=== PATIENT | male | born 1950 | race African-American/Black ===

== ENCOUNTER 2022-12-20 14:58 | Outpatient (AMB) | payer MEDICARE, SELFPAY ==
[2022-12-20 15:16] VITALS: BP 170/110; PULSE 62; BMI 36.5
--- NOTE | 2022-12-20 15:16 | HO.NEPHOV ---
HPI HPI Comments History of Present Illness Details I had the pleasure of seeing Gian in follow-up of his chronic kidney disease and hypertension. His blood pressure lately had been uncontrolled. He has obstructive sleep apnea and claims to be compliant with the CPAP. He has been having abdominal distension. He is wondering whether he has ascites. His urine output is good. He denies shortness of breath, proximal nocturnal dyspnea or orthopnea. He does not have any orthostatics symptoms, headache or weakness. He is not taking any nonsteroidal anti-inflammatory medications. He is not very strict with this salt intake. His serum creatinine has been around 2.3. [facility] Medical History (Updated 12/20/22 @ 16:08 by Manuel Bowers MD) Proteinuria Diabetes Chronic kidney disease, stage 3b Surgical History (Updated 12/20/22 @ 15:19 by Neida Stahl MA) H/O brain surgery Family History (Updated 12/20/22 @ 15:20 by Neida Stahl MA) Mother Hypertension Father Hypertension Stroke Sister Hypertension Social History (Updated 12/20/22 @ 15:19 by Neida Stahl MA) Alcohol intake: never Patient Tobacco Use Status: Never used Tobacco Vital Signs 12/20/22 15:16 Height 5 ft 10 in Weight 254 lb 2 oz BMI 36.5 BP 170/110 H Blood Pressure Location Lt brachial Position Sitting Pulse 62 Pulse Source Pulse Oximeter Physical Exam Vital Signs: Last Vital Signs Pulse 62 12/20/22 15:16 BP 170/110 H 12/20/22 15:16 BMI result Body Mass Index 36.5 Const General: no acute distress Orientation/consciousness: patient oriented x3 HEENT Head: Yes normocephalic Mouth: Normal oral and palatal mucosa present Eyes EOM: EOMs intact bilaterally Neck Neck: Yes supple Resp Auscultation: clear to auscultation bilaterally Cardio Jugular venous distension: no JVD Rate: regular rate Heart sounds: Murmur heart sound present GI Other: Distended Auscultation: normal bowel sounds General: Yes no CVA tenderness Back/Spine/Pelvis Back: no CVA tenderness Skin General skin exam: no rashes or lesions noted Neuro General: patient oriented x3 and moves all extremities Extrem General: Yes no pedal edema Assessment & Plan Assessment & Plan (1) Hypertension: Code(s): I10 - Essential (primary) hypertension Qualifiers: Hypertension type: primary hypertension Qualified Code(s): I10 - Essential (primary) hypertension (2) Chronic kidney disease, stage 3b: Code(s): N18.32 - Chronic kidney disease, stage 3b Vivian Springer has a stage III B CKD. He has diabetes for some time. He has mild proteinuria. His hypertension remains uncontrolled. I have ordered isosorbide 30 mg once a day . He has distended abdomen. Ascites needs to be ruled out. I will order ultrasound of the abdomen. He should be on a low-sodium diet. He likely needs to be re-initiated on spironolactone. If he has significant ascites , it needs to be tapped and needs to have a GI consult. Will continue rest of his current medications for now. Follow-up blood work ordered. All his questions and his sister's questions were answered. No other prescriptions were refilled today. Follow-up appointment given. Time spent the retrieving data, patient encounter and documentation 33 minutes. Orders: Orders Electrolytes Today I10 - Essential (primary) hypertension, N18.32 - Chronic kidney disease, stage 3b Blood Urea Nitrogen Today I10 - Essential (primary) hypertension, N18.32 - Chronic kidney disease, stage 3b Creatinine Today I10 - Essential (primary) hypertension, N18.32 - Chronic kidney disease, stage 3b Medications: New cholecalciferol (vitamin D3) 50 mcg PO DAILY 30 days 30 caps 8RF isosorbide mononitrate ER 30 mg PO DAILY 30 days 30 tabs 3RF Coding Level of Care Code Est Pt Level 4 (77350) Diagnoses Primary hypertension I10 Hypertension type: primary hypertension Chronic kidney disease, stage 3b N18.32
== END 2022-12-20 15:51 | disposition home or self-care (01) ==
PROVIDERS: PCP Internal Medicine; Visit Provider Internal Medicine Nephrology
DX: I12.9 Hypertensive chronic kidney disease with stage 1 through stage 4 chronic kidney disease, or unspecified chronic kidney disease (principal); N18.32 Chronic kidney disease, stage 3b
CPT/HCPCS: 99214

== ENCOUNTER → 2022-12-20 14:58 | Outpatient (BNVA) | payer OTHER, SELFPAY | PROVIDERS: PCP Internal Medicine; Visit Provider Internal Medicine Nephrology | DX: I12.9 Hypertensive chronic kidney disease with stage 1 through stage 4 chronic kidney disease, or unspecified chronic kidney disease (principal); N18.32 Chronic kidney disease, stage 3b | CPT/HCPCS: 99212 ==

== ENCOUNTER 2023-01-23 14:29 | Outpatient (AMB) | payer MEDICARE, SELFPAY ==
--- NOTE | 2023-01-23 14:42 | HO.NEPHOV_ITS ---
HPI HPI Comments History of Present Illness Details I had the pleasure of seeing Gian in follow-up of his chronic kidney disease and hypertension. His blood pressure is better controlled now. He has obstructive sleep apnea and claims to be compliant with the CPAP. He has been having abdominal distension and underwent an abdominal ultrasound which did not show any ascites. His urine output is good. He denies shortness of breath, proximal nocturnal dyspnea or orthopnea. He does not have any orthostatics symptoms, headache or weakness. He is not taking any nonsteroidal anti- inflammatory medications. He is not very strict with this salt intake. His ser um creatinine has been around 2.36. He continues to smoke. [facility] Medical History (Updated 12/20/22 @ 16:14 by Manuel Bowers MD) Proteinuria Diabetes Chronic kidney disease, stage 3b Surgical History H/O brain surgery Family History Mother Hypertension Father Hypertension Stroke Sister Hypertension Social History Alcohol intake: never Patient Tobacco Use Status: Never used Tobacco Vital Signs 01/23/23 14:43 01/23/23 15:22 Height 5 ft 10 in Weight 252 lb 8 oz BMI 36.2 BP 170/110 H 130/80 Blood Pressure Location Lt brachial Position Sitting Pulse 68 Pulse Source Pulse Oximeter Physical Exam Vital Signs: Last Vital Signs Pulse 68 01/23/23 14:43 BP 130/80 01/23/23 15:22 BMI result Body Mass Index 36.2 Assessment & Plan Assessment & Plan (1) Chronic kidney disease, stage 3b: Code(s): N18.32 - Chronic kidney disease, stage 3b (2) Hypertension: Code(s): I10 - Essential (primary) hypertension Qualifiers: Hypertension type: primary hypertension Qualified Code(s): I10 - Essential (primary) hypertension Plan Gian has a stage III B CKD. He has diabetes for some time. He has mild proteinuria. His hypertension is better controlled. His recent abdominal ultrasound did not show any ascites. He should be on a low-sodium diet. He may needed to be re-initiated on spironolactone, if his blood pressure control is suboptimal. We will continue rest of his current medications for now. Follow- up blood work ordered. All his questions and his sister's questions were answered. No other prescriptions were refilled today. Follow-up appointment given. Orders: Orders Blood Urea Nitrogen 01/23/23 I10 - Essential (primary) hypertension, N18.32 - Chronic kidney disease, stage 3b Creatinine 01/23/23 I10 - Essential (primary) hypertension, N18.32 - Chronic kidney disease, stage 3b Electrolytes 01/23/23 I10 - Essential (primary) hypertension, N18.32 - Chronic kidney disease, stage 3b Coding Level of Care Code Est Pt Level 3 (20745) Diagnoses Chronic kidney disease, stage 3b N18.32 Primary hypertension I10 Hypertension type: primary hypertension Results Reviewed Nephrology Results: No Data to Display
[2023-01-23 14:43] VITALS: BP 170/110; PULSE 68; BMI 36.2
[2023-01-23 15:22] VITALS: BP 130/80
== END 2023-01-23 15:25 | disposition home or self-care (01) ==
PROVIDERS: PCP Internal Medicine; Visit Provider Internal Medicine Nephrology
DX: N18.32 Chronic kidney disease, stage 3b (principal); I10 Essential (primary) hypertension
CPT/HCPCS: 99213

== ENCOUNTER → 2023-01-23 14:29 | Outpatient (BNVA) | payer MEDICARE, SELFPAY | PROVIDERS: PCP Internal Medicine; Visit Provider Internal Medicine Nephrology | DX: I12.9 Hypertensive chronic kidney disease with stage 1 through stage 4 chronic kidney disease, or unspecified chronic kidney disease (principal); N18.32 Chronic kidney disease, stage 3b | CPT/HCPCS: 99212 ==

== ENCOUNTER 2023-04-06 15:47 | Outpatient (AMB) | payer MEDICARE, SELFPAY ==
[2023-04-06 15:52] VITALS: BP 180/100; PULSE 65; O2SAT 93; BMI 36.2
--- NOTE | 2023-04-06 15:52 | HO.NEPHOV_ITS ---
HPI HPI Comments History of Present Illness Details I had the pleasure of seeing Gian in follow-up of his chronic kidney disease and hypertension. His blood pressure is better controlled now. He has obstructive sleep apnea and claims to be compliant with the CPAP. He has been having abdominal distension and underwent an abdominal ultrasound which did not show any ascites. His urine output is good. He denies shortness of breath, proximal nocturnal dyspnea or orthopnea. He does not have any orthostatics symptoms, headache or weakness. He is not taking any nonsteroidal anti- inflammatory medications. He is not very strict with this salt intake. His ser um creatinine has been around 2.36. He continues to smoke [facility] Medical History (Updated 12/20/22 @ 16:14 by Manuel Bowers MD) Proteinuria Diabetes Chronic kidney disease, stage 3b Surgical History H/O brain surgery Family History Mother Hypertension Father Hypertension Stroke Sister Hypertension Social History Alcohol intake: never Patient Tobacco Use Status: Never used Tobacco Vital Signs 04/06/23 15:52 Height 5 ft 10 in Weight 252 lb BMI 36.2 BP 180/100 H Blood Pressure Location Lt brachial Position Sitting Pulse 65 Pulse Source Pulse Oximeter Pulse Oximetry (%) 93 Oxygen Delivery Method Room Air Physical Exam Vital Signs: Last Vital Signs Pulse 65 04/06/23 15:52 BP 180/100 H 04/06/23 15:52 Pulse Ox 93 04/06/23 15:52 Oxygen Delivery Method Room Air 04/06/23 15:52 BMI result Body Mass Index 36.2 Const General: comfortable and no acute distress Orientation/consciousness: patient oriented x3 HEENT Head: Yes normocephalic Mouth: Normal oral and palatal mucosa present Eyes EOM: EOMs intact bilaterally Neck Neck: Yes supple Resp Auscultation: clear to auscultation bilaterally Cardio Jugular venous distension: no JVD Rate: regular rate GI Palpation (GI): Soft to palpation Auscultation: normal bowel sounds General: Yes no CVA tenderness Back/Spine/Pelvis Back: no CVA tenderness Skin General skin exam: no rashes or lesions noted Neuro General: patient oriented x3 and moves all extremities Extrem General: Yes no pedal edema Assessment & Plan Assessment & Plan (1) Chronic kidney disease, stage 3b: Code(s): N18.32 - Chronic kidney disease, stage 3b (2) Hypertension: Code(s): I10 - Essential (primary) hypertension Qualifiers: Hypertension type: primary hypertension Qualified Code(s): I10 - Essential (primary) hypertension Plan Gian has a stage III B CKD. He has diabetes for some time. He has mild proteinuria. His hypertension is not controlled. His recent abdominal ultrasound did not show any ascites. He should be on a low-sodium diet. I discontinued his metoprolol and started him on carvedilol 12.5 mg twice daily. I also increased his isosorbide to 60 mg daily. He may needed to be re- initiated on spironolactone, if his blood pressure control is suboptimal. We will continue rest of his current medications for now. All his questions and his sister's questions were answered. No other prescriptions were refilled t melita. Follow-up appointment given Medications: New carvedilol DISCONTINUED 25 mg PO BID 30 days 60 tabs 3RF Changed From isosorbide mononitrate ER 30 mg PO DAILY 30 days 30 tabs 3RF To isosorbide mononitrate ER 60 mg (2 x 30 mg) PO DAILY 30 days 60 tabs 3RF Coding Level of Care Code Est Pt Level 4 (65712) Diagnoses Chronic kidney disease, stage 3b N18.32 Primary hypertension I10 Hypertension type: primary hypertension Results Reviewed Nephrology Results: No Data to Display
== END 2023-04-06 16:16 | disposition home or self-care (01) ==
PROVIDERS: PCP Internal Medicine; Visit Provider Internal Medicine Nephrology
DX: N18.32 Chronic kidney disease, stage 3b (principal); I10 Essential (primary) hypertension
CPT/HCPCS: 99214

== ENCOUNTER → 2023-04-06 15:47 | Outpatient (BNVA) | payer MEDICARE, SELFPAY | PROVIDERS: PCP Internal Medicine; Visit Provider Internal Medicine Nephrology | DX: I12.9 Hypertensive chronic kidney disease with stage 1 through stage 4 chronic kidney disease, or unspecified chronic kidney disease (principal); N18.32 Chronic kidney disease, stage 3b | CPT/HCPCS: 99212 ==

== ENCOUNTER → 2023-04-12 15:32 | Outpatient (BNVA) | payer MEDICARE, SELFPAY | PROVIDERS: PCP Internal Medicine; Visit Provider Internal Medicine Nephrology | DX: I12.9 Hypertensive chronic kidney disease with stage 1 through stage 4 chronic kidney disease, or unspecified chronic kidney disease (principal); N18.32 Chronic kidney disease, stage 3b | CPT/HCPCS: 99212 ==

== ENCOUNTER 2023-04-12 15:33 | Outpatient (AMB) | payer MEDICARE, SELFPAY ==
[2023-04-12 16:00] VITALS: BP 140/100; PULSE 69; O2SAT 93; BMI 35.9
--- NOTE | 2023-04-12 16:00 | HO.NEPHOV_ITS ---
HPI HPI Comments History of Present Illness Details I had the pleasure of seeing Gian in follow-up of his chronic kidney disease and hypertension. His blood pressure is better controlled now. He has obstructive sleep apnea and claims to be compliant with the CPAP. He has been having abdominal distension and underwent an abdominal ultrasound which did not show any ascites. His urine output is good. He denies shortness of breath, proximal nocturnal dyspnea or orthopnea. He does not have any orthostatics symptoms, headache or weakness. He is not taking any nonsteroidal anti- inflammatory medications. He is not very strict with this salt intake. His ser um creatinine has been around 2.36. He continues to smoke [facility] Medical History (Updated 12/20/22 @ 16:14 by Manuel Bowers MD) Proteinuria Diabetes Chronic kidney disease, stage 3b Surgical History H/O brain surgery Family History Mother Hypertension Father Hypertension Stroke Sister Hypertension Social History Alcohol intake: never Patient Tobacco Use Status: Never used Tobacco Vital Signs 04/12/23 16:00 Height 5 ft 10 in Weight 250 lb 6 oz BMI 35.9 BP 140/100 H Blood Pressure Location Lt brachial Position Sitting Pulse 69 Pulse Source Pulse Oximeter Pulse Oximetry (%) 93 Oxygen Delivery Method Room Air Physical Exam Vital Signs: Last Vital Signs Pulse 69 04/12/23 16:00 BP 180/110 H 04/12/23 16:00 Pulse Ox 93 04/12/23 16:00 Oxygen Delivery Method Room Air 04/12/23 16:00 BMI result Body Mass Index 35.9 Const General: comfortable and no acute distress Orientation/consciousness: patient oriented x3 HEENT Head: Yes normocephalic Mouth: Normal oral and palatal mucosa present Eyes EOM: EOMs intact bilaterally Neck Neck: Yes supple Resp Auscultation: clear to auscultation bilaterally Cardio Jugular venous distension: no JVD Rate: regular rate GI Palpation (GI): Soft to palpation Auscultation: normal bowel sounds General: Yes no CVA tenderness Back/Spine/Pelvis Back: no CVA tenderness Skin General skin exam: no rashes or lesions noted Neuro General: patient oriented x3 and moves all extremities Assessment & Plan Assessment & Plan (1) Chronic kidney disease, stage 3b: Code(s): N18.32 - Chronic kidney disease, stage 3b (2) Hypertension: Code(s): I10 - Essential (primary) hypertension Qualifiers: Hypertension type: primary hypertension Qualified Code(s): I10 - Essential (primary) hypertension Plan Gian has a stage III B CKD. He has diabetes for some time. He has mild proteinuria. His hypertension is not controlled. His recent abdominal ultrasound did not show any ascites. He should be on a low-sodium diet. I discontinued his metoprolol at the last visit and started him on carvedilol 12.5 mg twice daily at the last visit which I increased to 25 mg bid today. C/W isosorbide to 60 mg daily. He may needed to be re-initiated on spironolactone, if his blood pressure control is suboptimal. We will continue rest of his current medications for now. All his questions and his sister's questions were answered. No other prescriptions were refilled today. Follow-up appointment given Coding Level of Care Code Est Pt Level 3 (93950) Diagnoses Chronic kidney disease, stage 3b N18.32 Primary hypertension I10 Hypertension type: primary hypertension Results Reviewed Nephrology Results: No Data to Display
== END 2023-04-12 16:25 | disposition home or self-care (01) ==
PROVIDERS: PCP Internal Medicine; Visit Provider Internal Medicine Nephrology
DX: N18.32 Chronic kidney disease, stage 3b (principal); I10 Essential (primary) hypertension
CPT/HCPCS: 99213

== ENCOUNTER 2023-04-24 14:32 | Outpatient (AMB) | payer MEDICARE, SELFPAY ==
[2023-04-24 14:40] VITALS: BP 140/90; PULSE 67; O2SAT 95; BMI 35.7
--- NOTE | 2023-04-24 14:40 | HO.NEPHOV_ITS ---
HPI HPI Comments History of Present Illness Details I had the pleasure of seeing Gian in follow-up of his chronic kidney disease and hypertension. His blood pressure is better controlled now. He has obstructive sleep apnea and claims to be compliant with the CPAP. He has been having abdominal distension and underwent an abdominal ultrasound which did not show any ascites. His urine output is good. He denies shortness of breath, proximal nocturnal dyspnea or orthopnea. He does not have any orthostatics symptoms, headache or weakness. He is not taking any nonsteroidal anti- inflammatory medications. He is not very strict with this salt intake. His ser um creatinine has been around 2.36. He continues to smoke [facility] Medical History (Updated 12/20/22 @ 16:14 by Manuel Bowers MD) Proteinuria Diabetes Chronic kidney disease, stage 3b Surgical History H/O brain surgery Family History Mother Hypertension Father Hypertension Stroke Sister Hypertension Social History Alcohol intake: never Patient Tobacco Use Status: Never used Tobacco Vital Signs 04/24/23 14:40 Height 5 ft 10 in Weight 248 lb 8 oz BMI 35.7 BP 140/90 H Blood Pressure Location Lt brachial Position Sitting Pulse 67 Pulse Source Pulse Oximeter Pulse Oximetry (%) 95 Oxygen Delivery Method Room Air Physical Exam Vital Signs: Last Vital Signs Pulse 67 04/24/23 14:40 BP 210/100 H 04/24/23 14:40 Pulse Ox 95 04/24/23 14:40 Oxygen Delivery Method Room Air 04/24/23 14:40 BMI result Body Mass Index 35.7 Const General: comfortable and no acute distress Orientation/consciousness: patient oriented x3 HEENT Head: Yes normocephalic Mouth: Normal oral and palatal mucosa present Eyes EOM: EOMs intact bilaterally Neck Neck: Yes supple Resp Auscultation: clear to auscultation bilaterally Cardio Jugular venous distension: no JVD Rate: regular rate GI Palpation (GI): Soft to palpation Auscultation: normal bowel sounds General: Yes no CVA tenderness Back/Spine/Pelvis Back: no CVA tenderness Skin General skin exam: no rashes or lesions noted Neuro General: patient oriented x3 and moves all extremities Extrem General: Yes no pedal edema Assessment & Plan Assessment & Plan (1) Chronic kidney disease, stage 3b: Code(s): N18.32 - Chronic kidney disease, stage 3b (2) Hypertension: Code(s): I10 - Essential (primary) hypertension Qualifiers: Hypertension type: primary hypertension Qualified Code(s): I10 - Essential (primary) hypertension Plan Gian has a stage III B CKD. He has diabetes for some time. He has mild proteinuria. His hypertension is not controlled. His recent abdominal ultrasound did not show any ascites. He should be on a low-sodium diet. C/W isosorbide 60 mg daily and current dose of carvedilol. He may needed to be re- initiated on spironolactone, if his blood pressure control is suboptimal. We will continue rest of his current medications for now. All his questions were answered. No other prescriptions were refilled today. Follow-up appointment given Orders: Orders Blood Urea Nitrogen Today I10 - Essential (primary) hypertension, N18.32 - Chronic kidney disease, stage 3b Creatinine Today I10 - Essential (primary) hypertension, N18.32 - Chronic kidney disease, stage 3b Electrolytes Today I10 - Essential (primary) hypertension, N18.32 - Chronic kidney disease, stage 3b Coding Level of Care Code Est Pt Level 3 (44792) Diagnoses Chronic kidney disease, stage 3b N18.32 Primary hypertension I10 Hypertension type: primary hypertension Results Reviewed Nephrology Results: No Data to Display
== END 2023-04-24 14:51 | disposition home or self-care (01) ==
PROVIDERS: PCP Internal Medicine; Visit Provider Internal Medicine Nephrology
DX: N18.32 Chronic kidney disease, stage 3b (principal); I10 Essential (primary) hypertension
CPT/HCPCS: 99213

== ENCOUNTER → 2023-04-24 14:32 | Outpatient (BNVA) | payer MEDICARE, SELFPAY | PROVIDERS: PCP Internal Medicine; Visit Provider Internal Medicine Nephrology | DX: I12.9 Hypertensive chronic kidney disease with stage 1 through stage 4 chronic kidney disease, or unspecified chronic kidney disease (principal); N18.32 Chronic kidney disease, stage 3b | CPT/HCPCS: 99212 ==

== ENCOUNTER → 2023-05-01 15:44 | Outpatient (BNVA) | payer MEDICARE, SELFPAY | PROVIDERS: PCP Internal Medicine; Visit Provider Internal Medicine Nephrology | DX: I12.9 Hypertensive chronic kidney disease with stage 1 through stage 4 chronic kidney disease, or unspecified chronic kidney disease (principal); N18.32 Chronic kidney disease, stage 3b | CPT/HCPCS: 99212 ==

== ENCOUNTER 2023-05-01 15:45 | Outpatient (AMB) | payer MEDICARE, SELFPAY ==
[2023-05-01 15:46] VITALS: BP 160/90
--- NOTE | 2023-05-01 15:46 | MHC.OFFVIS ---
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 His blood pressure is better controlled but not optimal . He has obstructive sleep apnea and claims to be compliant with the CPAP. He has been having abdominal distension and underwent an abdominal ultrasound which did not show any ascites. His urine output is good. He denies shortness of breath, proximal nocturnal dyspnea or orthopnea. He does not have any orthostatics symptoms, headache or weakness. He is not taking any nonsteroidal anti-inflammatory medications. He is not very strict with this salt intake. His serum creatinine has been around 2.36. He continues to smoke [facility] Medical History (Updated 12/20/22 @ 16:14 by Manuel Bowers MD) Proteinuria Diabetes Chronic kidney disease, stage 3b Surgical History H/O brain surgery Family History Mother Hypertension Father Hypertension Stroke Sister Hypertension Social History Alcohol intake: never Patient Tobacco Use Status: Never used Tobacco Physical Exam Vital Signs: Last Vital Signs BP 170/118 H 05/01/23 15:46 Const General: comfortable and no acute distress Orientation/consciousness: patient oriented x3 HEENT Head: Yes normocephalic Mouth: Normal oral and palatal mucosa present Eyes EOM: EOMs intact bilaterally Neck Neck: Yes supple Resp Auscultation: clear to auscultation bilaterally Cardio Jugular venous distension: no JVD Rate: regular rate GI Palpation (GI): Soft to palpation Auscultation: normal bowel sounds General: Yes no CVA tenderness Back/Spine/Pelvis Back: no CVA tenderness Skin General skin exam: no rashes or lesions noted Neuro General: patient oriented x3 and moves all extremities Extrem General: Yes no pedal edema Assessment & Plan Assessment & Plan (1) Chronic kidney disease, stage 3b: Code(s): N18.32 - Chronic kidney disease, stage 3b (2) Hypertension: Code(s): I10 - Essential (primary) hypertension Qualifiers: Hypertension type: primary hypertension Qualified Code(s): I10 - Essential (primary) hypertension Plan Gian has a stage III B CKD. He has diabetes for some time. He has mild proteinuria. His hypertension is not controlled. His recent abdominal ultrasound did not show any ascites. He should be on a low-sodium diet. C/W isosorbide 60 mg daily and current dose of carvedilol. I started him on AMlodipine 5 mg daily. He may needed to be re-initiated on spironolactone, if his blood pressure control is suboptimal. We will continue rest of his current medications for now. All his questions were answered. No other prescriptions were refilled today. Follow-up appointment given Orders: Orders Blood Urea Nitrogen Today I10 - Essential (primary) hypertension, N18.32 - Chronic kidney disease, stage 3b Creatinine Today I10 - Essential (primary) hypertension, N18.32 - Chronic kidney disease, stage 3b Electrolytes Today I10 - Essential (primary) hypertension, N18.32 - Chronic kidney disease, stage 3b Medications: New amlodipine 5 mg PO DAILY 30 tabs 3RF Refilled carvedilol 25 mg PO BID 180 tabs 1RF Coding Level of Care Code Est Pt Level 4 (07897) Diagnoses Chronic kidney disease, stage 3b N18.32 Primary hypertension I10 Hypertension type: primary hypertension
== END 2023-05-01 15:59 | disposition home or self-care (01) ==
PROVIDERS: PCP Internal Medicine; Visit Provider Internal Medicine Nephrology
DX: N18.32 Chronic kidney disease, stage 3b (principal); I10 Essential (primary) hypertension
CPT/HCPCS: 99214

== ENCOUNTER 2023-07-17 11:02 | Outpatient (AMB) | payer MEDICARE, SELFPAY ==
[2023-07-17 11:35] VITALS: BP 120/66; PULSE 61; O2SAT 94; BMI 34.8
--- NOTE | 2023-07-17 11:35 | HO.NEPHOV_ITS ---
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 His blood pressure is better controlled . 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 His BP medications were changed and his BP has been at goal. He is smoking .He has obstructive sleep apnea and claims to be compliant with the CPAP. His urine output is good. He denies shortness of breath, proximal nocturnal dyspnea or orthopnea. He does not have any orthostatics symptoms, headache or weakness. He is not taking any nonsteroidal anti-inflammatory medications. He is not very strict with this salt intake. His serum creatinine has been stable. [facility] Medical History (Updated 12/20/22 @ 16:14 by Manuel Bowers MD) Proteinuria Diabetes Chronic kidney disease, stage 3b Surgical History H/O brain surgery Family History Mother Hypertension Father Hypertension Stroke Sister Hypertension Social History Alcohol intake: never Patient Tobacco Use Status: Never used Tobacco Physical Exam Vital Signs: Last Vital Signs Pulse 61 07/17/23 11:35 BP 120/66 07/17/23 11:35 Pulse Ox 94 07/17/23 11:35 Oxygen Delivery Method Room Air 07/17/23 11:35 BMI result Body Mass Index 34.8 Results Reviewed Nephrology Results: No Data to Display Assessment & Plan Assessment & Plan (1) Chronic kidney disease, stage 3b: Code(s): N18.32 - Chronic kidney disease, stage 3b Category: Medical (2) Hypertension: Code(s): I10 - Essential (primary) hypertension Category: Medical Qualifiers: Hypertension type: primary hypertension Qualified Code(s): I10 - Essential (primary) hypertension Plan Gian has a stage III B CKD. He has diabetes for some time. He has mild proteinuria. His hypertension is controlled. 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 He has a F/U with Dr Palacio.He should be on a low-sodium diet. HE could continue current medication regimen. All his questions were answered. No other prescriptions were refilled today. Follow-up appointment given Orders: Orders Creatinine Today I10 - Essential (primary) hypertension, N18.32 - Chronic kidney disease, stage 3b Blood Urea Nitrogen Today I10 - Essential (primary) hypertension, N18.32 - Chronic kidney disease, stage 3b Electrolytes Today I10 - Essential (primary) hypertension, N18.32 - Chronic kidney disease, stage 3b Coding Level of Care Code Est Pt Level 4 (06771) Diagnoses Chronic kidney disease, stage 3b N18.32 Primary hypertension I10 Hypertension type: primary hypertension
== END 2023-07-17 12:00 | disposition home or self-care (01) ==
PROVIDERS: PCP Internal Medicine; Visit Provider Internal Medicine Nephrology
DX: N18.32 Chronic kidney disease, stage 3b (principal); I10 Essential (primary) hypertension
CPT/HCPCS: 99214

== ENCOUNTER → 2023-07-17 11:02 | Outpatient (BNVA) | payer MEDICARE, SELFPAY | PROVIDERS: PCP Internal Medicine; Visit Provider Internal Medicine Nephrology | DX: I12.9 Hypertensive chronic kidney disease with stage 1 through stage 4 chronic kidney disease, or unspecified chronic kidney disease (principal); N18.32 Chronic kidney disease, stage 3b | CPT/HCPCS: 99212 ==

== ENCOUNTER 2023-09-13 10:44 | Outpatient (AMB) | payer MEDICARE, SELFPAY ==
[2023-09-13 11:16] VITALS: BP 110/70; PULSE 59; O2SAT 93; BMI 34.6
--- NOTE | 2023-09-13 11:16 | HO.NEPHOV_ITS ---
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 His blood pressure is better controlled . 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 His BP medications were changed and his BP has been at goal. He is smoking .He has obstructive sleep apnea and claims to be compliant with the CPAP. His urine output is good. He denies shortness of breath, proximal nocturnal dyspnea or orthopnea. He does not have any orthostatics symptoms, headache or weakness. He is not taking any nonsteroidal anti-inflammatory medications. He is not very strict with this salt intake. His serum creatinine has been stable. [facility] Medical History (Updated 12/20/22 @ 16:14 by Manuel Bowers MD) Proteinuria Diabetes Chronic kidney disease, stage 3b Surgical History H/O brain surgery Family History Mother Hypertension Father Hypertension Stroke Sister Hypertension Social History Alcohol intake: never Patient Tobacco Use Status: Never used Tobacco Review of Systems Const All systems reviewed & are unremarkable except as noted in HPI and below Physical Exam Vital Signs: Last Vital Signs Pulse 59 09/13/23 11:16 BP 110/70 09/13/23 11:16 Pulse Ox 93 09/13/23 11:16 Oxygen Delivery Method Room Air 09/13/23 11:16 BMI result Body Mass Index 34.6 Const General: comfortable and no acute distress Orientation/consciousness: patient oriented x3 HEENT Head: Yes normocephalic Mouth: Normal oral and palatal mucosa present Eyes EOM: EOMs intact bilaterally Neck Neck: Yes supple Resp Auscultation: clear to auscultation bilaterally Cardio Jugular venous distension: no JVD Rate: regular rate GI Palpation (GI): Soft to palpation Auscultation: normal bowel sounds General: Yes no CVA tenderness Back/Spine/Pelvis Back: no CVA tenderness Skin General skin exam: no rashes or lesions noted Neuro General: patient oriented x3 and moves all extremities Extrem General: Yes no pedal edema Results Reviewed Nephrology Results: No Data to Display Assessment & Plan Assessment & Plan (1) Chronic kidney disease, stage 3b: Code(s): N18.32 - Chronic kidney disease, stage 3b Category: Medical (2) Hypertension: Code(s): I10 - Essential (primary) hypertension Category: Medical Qualifiers: Hypertension type: primary hypertension Qualified Code(s): I10 - Essential (primary) hypertension Plan Gian has a stage III B CKD. He has diabetes for some time. He has mild proteinuria. His hypertension is controlled. 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 He should F/U with Dr Palacio for his dissection .He should be on a low-sodium diet. HE could continue current medication regimen. All his questions were answered. No other prescriptions were refilled today. Shall order Vit D and PTH at next visit. Follow-up appointment given Orders: Orders Creatinine Today I10 - Essential (primary) hypertension, N18.32 - Chronic kidney disease, stage 3b Blood Urea Nitrogen Today I10 - Essential (primary) hypertension, N18.32 - Chronic kidney disease, stage 3b Electrolytes Today I10 - Essential (primary) hypertension, N18.32 - Chronic kidney disease, stage 3b Medications: New atorvastatin 40 mg PO DAILY 90 tabs 0RF Coding Level of Care Code Est Pt Level 4 (64227) Diagnoses Chronic kidney disease, stage 3b N18.32 Primary hypertension I10 Hypertension type: primary hypertension
== END 2023-09-13 11:50 | disposition home or self-care (01) ==
PROVIDERS: PCP Internal Medicine; Visit Provider Internal Medicine Nephrology
DX: N18.32 Chronic kidney disease, stage 3b (principal); I10 Essential (primary) hypertension
CPT/HCPCS: 99214

== ENCOUNTER → 2023-09-13 10:44 | Outpatient (BNVA) | payer MEDICARE, SELFPAY | PROVIDERS: PCP Internal Medicine; Visit Provider Internal Medicine Nephrology | DX: I12.9 Hypertensive chronic kidney disease with stage 1 through stage 4 chronic kidney disease, or unspecified chronic kidney disease (principal); N18.32 Chronic kidney disease, stage 3b | CPT/HCPCS: 99212 ==

== ENCOUNTER 2023-12-27 09:49 | Outpatient (AMB) | payer MEDICARE, SELFPAY ==
[2023-12-27 10:10] VITALS: BP 118/64; PULSE 60; O2SAT 93; BMI 36.0
--- NOTE | 2023-12-27 10:10 | HO.NEPHOV_ITS ---
Vital Signs 12/27/23 10:10 Height 5 ft 10 in Weight 251 lb BMI 36.0 BP 118/64 Blood Pressure Location Lt brachial Position Sitting Pulse 60 Pulse Source Pulse Oximeter Pulse Oximetry (%) 93 Oxygen Delivery Method Room Air Intake Visit Reasons: [facility]'carolyn 12/19 appt-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 His blood pressure is well controlled . 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 His BP medications were changed and his BP has been at goal. He is smoking .He has obstructive sleep apnea and claims to be compliant with the CPAP. His urine output is good. He denies shortness of breath, proximal nocturnal dyspnea or orthopnea. He does not have any orthostatics symptoms, headache or weakness. He is not taking any nonsteroidal anti-inflammatory medications. He is not very strict with this salt intake. Hi s serum creatinine had been stable. [facility] Medical History (Updated 12/20/22 @ 16:14 by Manuel Bwoers MD) Proteinuria Diabetes Chronic kidney disease, stage 3b Surgical History H/O brain surgery Family History Mother Hypertension Father Hypertension Stroke Sister Hypertension Social History Alcohol intake: never Patient Tobacco Use Status: Never used Tobacco Review of Systems Const All systems reviewed & are unremarkable except as noted in HPI and below Physical Exam Vital Signs: Last Vital Signs Pulse 60 12/27/23 10:10 BP 118/64 12/27/23 10:10 Pulse Ox 93 12/27/23 10:10 Oxygen Delivery Method Room Air 12/27/23 10:10 BMI result Body Mass Index 36.0 Const General: comfortable and no acute distress Orientation/consciousness: patient oriented x3 HEENT Head: Yes normocephalic Mouth: Normal oral and palatal mucosa present Eyes EOM: EOMs intact bilaterally Neck Neck: Yes supple Resp Auscultation: clear to auscultation bilaterally Cardio Jugular venous distension: no JVD Rate: regular rate GI Palpation (GI): Soft to palpation Auscultation: normal bowel sounds General: Yes no CVA tenderness Back/Spine/Pelvis Back: no CVA tenderness Skin General skin exam: no rashes or lesions noted Neuro General: patient oriented x3 and moves all extremities Results Reviewed Nephrology Results: No Data to Display Assessment & Plan Assessment & Plan (1) Chronic kidney disease, stage 3b: Code(s): N18.32 - Chronic kidney disease, stage 3b Category: Medical (2) Hypertension: Code(s): I10 - Essential (primary) hypertension Category: Medical Qualifiers: Hypertension type: primary hypertension Qualified Code(s): I10 - Essential (primary) hypertension Plan Gian has a stage III B CKD. He has diabetes for some time. He has mild proteinuria. His hypertension is controlled. 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 He should be on a low-sodium diet. HE could continue current medication regimen. All his questions were answered. No other prescriptions were refilled today. Follow-up appointment given Orders: Orders Blood Urea Nitrogen 1 Week I10 - Essential (primary) hypertension, N18.32 - Chronic kidney disease, stage 3b Vitamin D 25-OH Total 1 Week I10 - Essential (primary) hypertension, N18.32 - Chronic kidney disease, stage 3b Phosphorus 1 Week I10 - Essential (primary) hypertension, N18.32 - Chronic kidney disease, stage 3b Creatinine 1 Week I10 - Essential (primary) hypertension, N18.32 - Chronic kidney disease, stage 3b Electrolytes 1 Week I10 - Essential (primary) hypertension, N18.32 - Chronic kidney disease, stage 3b Calcium 1 Week I10 - Essential (primary) hypertension, N18.32 - Chronic kidney disease, stage 3b Complete Blood Count Auto Diff 1 Week I10 - Essential (primary) hypertension, N18.32 - Chronic kidney disease, stage 3b Parathyroid Hormone Intact 1 Week I10 - Essential (primary) hypertension, N18.32 - Chronic kidney disease, stage 3b Coding Level of Care Code Est Pt Level 4 (02773) Diagnoses Chronic kidney disease, stage 3b N18.32 Primary hypertension I10 Hypertension type: primary hypertension
== END 2023-12-27 10:30 | disposition home or self-care (01) ==
PROVIDERS: PCP Internal Medicine; Visit Provider Internal Medicine Nephrology
DX: N18.32 Chronic kidney disease, stage 3b (principal); I10 Essential (primary) hypertension
CPT/HCPCS: 99214

== ENCOUNTER → 2023-12-27 09:49 | Outpatient (BNVA) | payer MEDICARE, SELFPAY | PROVIDERS: PCP Internal Medicine; Visit Provider Internal Medicine Nephrology | DX: E11.22 Type 2 diabetes mellitus with diabetic chronic kidney disease (principal); I12.9 Hypertensive chronic kidney disease with stage 1 through stage 4 chronic kidney disease, or unspecified chronic kidney disease; N18.32 Chronic kidney disease, stage 3b | CPT/HCPCS: 99212 ==

== ENCOUNTER 2024-04-24 10:26 | Outpatient (AMB) | payer MEDICARE, SELFPAY ==
--- NOTE | 2024-04-24 10:55 | HO.NEPHOV_ITS ---
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 His blood pressure is well controlled . 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 His BP medications were changed and his BP has been at goal. He is smoking .He has obstructive sleep apnea and claims to be compliant with the CPAP. His urine output is good. He denies shortness of breath, proximal nocturnal dyspnea or orthopnea. He does not have any orthostatics symptoms, headache or weakness. He is not taking any nonsteroidal anti-inflammatory medications. He is not very strict with this salt intake. His serum creatinine had been stable. [facility] Medical History (Updated 12/20/22 @ 16:14 by Manuel Bowers MD) Proteinuria Diabetes Chronic kidney disease, stage 3b Surgical History H/O brain surgery Family History Mother Hypertension Father Hypertension Stroke Sister Hypertension Social History Alcohol intake: never Patient Tobacco Use Status: Never used Tobacco Review of Systems Const All systems reviewed & are unremarkable except as noted in HPI and below Physical Exam Vital Signs: Last Vital Signs Pulse 58 04/24/24 10:56 BP 150/80 H 04/24/24 10:56 Pulse Ox 93 04/24/24 10:56 Oxygen Delivery Method Room Air 04/24/24 10:56 BMI result Body Mass Index 37.1 Const General: comfortable and no acute distress Orientation/consciousness: patient oriented x3 HEENT Head: Yes normocephalic Mouth: Normal oral and palatal mucosa present Eyes EOM: EOMs intact bilaterally Neck Neck: Yes supple Resp Auscultation: clear to auscultation bilaterally Cardio Jugular venous distension: no JVD Rate: regular rate GI Palpation (GI): Soft to palpation Auscultation: normal bowel sounds Skin General skin exam: no rashes or lesions noted Neuro General: patient oriented x3 and moves all extremities Extrem General: Yes no pedal edema Results Reviewed Nephrology Results: No Data to Display Assessment & Plan Assessment & Plan (1) Chronic kidney disease, stage 3b: Code(s): N18.32 - Chronic kidney disease, stage 3b Category: Medical (2) Hypertension: Code(s): I10 - Essential (primary) hypertension Category: Medical Qualifiers: Hypertension type: primary hypertension Qualified Code(s): I10 - Essential (primary) hypertension Plan Gian has a stage III B CKD. He has diabetes for some time. He has mild proteinuria. His hypertension is controlled. He had Type B aortic dissection including left renal artery. He should be on a low-sodium diet. HE could continue current medication regimen. All his questions were answered. No other prescriptions were refilled today. Follow-up appointment given Orders: Orders Creatinine 4 Months I10 - Essential (primary) hypertension, N18.32 - Chronic kidney disease, stage 3b Electrolytes 4 Months I10 - Essential (primary) hypertension, N18.32 - Chronic kidney disease, stage 3b Blood Urea Nitrogen 4 Months I10 - Essential (primary) hypertension, N18.32 - Chronic kidney disease, stage 3b Coding Level of Care Code Est Pt Level 4 (11322) Diagnoses Chronic kidney disease, stage 3b N18.32 Primary hypertension I10 Hypertension type: primary hypertension
[2024-04-24 10:56] VITALS: BP 150/80; PULSE 58; O2SAT 93; BMI 37.1
--- OUTSIDE RECORDS SUMMARY | 2024-04-24 13:02 | XMS_ITS | Encounter Summary ---
Author Organization [facility] Address [address] [place] [address] Care Team Providers Care Gold Layer Name Role Phone Luis Eduardo Hendrickson MD Primary Care Provider [phone] Reason for Referral * Consultation (Routine) - Authorized Specialty Diagnoses / Procedures Referred By Contac t Referred To Contact Cardiology Diagnoses Paroxysmal atrial fibrillation (CMS/HCC) Luis Eduardo Hendrickson MD [address] [address] Phone: tel: fax: [facility] [address] [place] [address] Phone: tel: fax: Referral ID Status Reason Start Date Expiration Date Visits Requested Visits Authorized [id number] Authorized Specialty Services Required 04/07/2024 04/07/2025 1 1 Reason for Visit * Reason Comments Follow-up Encounter Details Date Type Department Care Team (Late st Contact Info) Description 04/07/2024 3:00 PM EST Office Visit Internal Medicine - [place] [address] [address] Luis Eduardo Hendrickson MD 175 [facility] [address] [place] [address] Primary hypertension (Primary Dx); Paroxysmal atrial fibrillation (CMS/HCC); Type 2 diabetes mellitus with stage 3 chronic kidney disease, without long-term current use of insulin, unspecified whether stage 3a or 3b CKD (CMS/HCC) Social History Tobacco Use Types Packs/Day Years Used Date Smoking Tobacco: Every Day Cigarettes Smokeless Tobacco: Former Alcohol Use Standard Drinks/Week Comments No 0 (1 standard drink = 0.6 oz pur e alcohol) Interpersonal Safety Answer Date Record ed Physical Abuse 03/18/2024 Verbal Abuse 03/18/2024 Sex and Gender Information Value Date Recorded Sex Assigned at Male 03/06/2024 8:53 AM EST Legal Sex Male 8:34 AM EST Gender Identity Transgender Male 03/06/2024 8:53 AM EST Sexual Orientation Straight 03/06/2024 8: 53 AM EST documented as of this encounter Last Filed Vital Signs Vital Sign Reading Time Taken Comments Blood Pressure 138/78 04/07/2024 2:53 PM EST Pulse 56 04/07/2024 2:53 PM EST Temperature 36.8 ??C (98.3 ??F) 04/07/2024 2:53 PM ES T Respiratory Rate - - Oxygen Saturation 92% 04/07/2024 2:53 PM EST Inhaled Oxygen Concentration - - Weight 112 kg (246 lb 6.4 oz) 04/07/2024 2:53 PM EST Height - - Body Mass Index 35.35 03/18/2024 9:34 AM EST documented in this encounter Ordered Prescriptions Prescription Sig Dispense Quantity Refills Last Filled Start Date End Date losartan (COZAAR) 100 mg tablet Take 1 tablet (100 mg total) by mouth 1 (one) time each day. 90 each 1 04/07/2024 isosorbide mononitrate (IMDUR) 30 mg 24 hr tablet Take 2 tablets (60 mg total) by mouth 2 (two) times a day. FOR 30 DAYS 180 tablet 1 04/07/2024 gabapentin (NEURONTIN) 300 mg capsule Take 1 capsule (300 mg total) by mouth 2 (two) times a day. 180 capsule 1 04/07/2024 apixaban (Eliquis) 5 mg tablet Take 1 tablet (5 mg total) by mouth 2 (two) times a day. 60 tablet 5 04/07/2024 documented in this encounter Progress Notes * Luis Eduardo Hendrickson MD - 04/07/2024 3:00 PM EST COMPLAINT medication review and testing IDENTIFIER: Gian Garcia is a 73 y.o. old adult. HPI: CKD and diabetes seems to be under control. A-fib is stable. Hypertension is under control ROS: GENERAL: No malaise, significant weight loss or fever RESPIRATORY: No cough, wheezing or shortness of breath CARDIOVASCULAR: No chest pain, leg swelling or palpitations GI: No abdominal discomfort, blood in stools or black stools PAST MEDICAL HISTORY: Patient Active Problem List Diagnosis Date Noted Total incontinence 11/15/2017 Paroxysmal atrial fibrillation ([facility]) 06/28/2017 Constipation 02/20/2017 Autonomic neuropathy 08/02/2016 Chronic cholecystitis 08/02/2016 Chronic hepatitis C ([facility]) 08/02/2016 Diabetes mellitus type 2 with neurological manifestations ([facility]) 08/02/2016 DM (diabetes mellitus), type 2 with renal complications ([facility]) 08/02/2016 Hypertension 08/02/2016 Hypokalemia 08/02/2016 Hypomagnesemia 08/02/2016 Memory impairment 08/02/2016 Microalbuminuria 08/02/2016 Onychomycosis 08/02/2016 Overactive bladder 08/02/2016 Seizure disorder ([facility]) 08/02/2016 TBI (traumatic brain injury) ([facility]) 08/02/2016 Ventral hernia 08/02/2016 CKD (chronic kidney disease) stage 3, GFR 30-59 ml/min ([facility]) 07/24/2013 Internal hemorrhoids 08/29/2011 Past Surgical History: Procedure Laterality Date ANKLE SURGERY PROCEDURE: HISTORICAL ANKLE SURGERY OTHER SURGICAL HISTORY PROCEDURE: HISTORY OTHER; COMMENT: brain surgery SOCIAL HISTORY: Social History Tobacco Use Smoking status: Every Day Current packs/day: 0.50 Types: Cigarettes Smokeless tobacco: Former Substance Use Topics Alcohol use: No FAMILY HISTORY: Family History Problem Relation Name Age of Onset Cancer Sister breast Heart attack Father Other (Other: dialysis) Mother MEDICATIONS DISCONTINUED/REORDERED: There are no discontinued medications. ACTIVE MEDICATIONS: Outpatient Medications Marked as Taking for the 04/07/24 encounter (Office Visit) with Luis Eduardo Hendrickson MD Medication Sig Dispense Refill albuterol HFA (PROAIR HFA ; PROVENTIL HFA ; VENTOLIN HFA) 90 mcg/actuation inhaler INHACE 2 PUFFS BY MOUTH EVERY 6 HOURS NEEDED FOR COUGH/WHEEZING OR SHORTNESS OF BREATH. 8.5 each 11 ammonium lactate (AMLACTIN) 12 % cream Apply topically 1 (one) time each day. APPLY TO BOTTOM OF FEET DAILY AND COVER WITH SOCKS aspirin 81 mg EC tablet Take 1 tablet (81 mg total) by mouth 1 (one) time each day. bisacodyL (DULCOLAX) 5 mg EC tablet Take 2 tablets by mouth right before beginning bowel prep. See instructions provided by the office 2 tablet 0 bisacodyL (Dulcolax, bisacodyl,) 5 mg EC tablet Take 4 tabs 1-2 hours prior to taking the bowel prep blood pressure test kit-large kit 1 Units by Not Applicable route 1 (one) time each day. DX hypertension blood sugar diagnostic (FreeStyle Lite Strips) test strip 2 (two) times a day. USE DIRECTED blood-glucose meter kit 1 Units by Not Applicable route 2 (two) times a day. DX E11.49 carvediloL (COREG) 25 mg tablet Take 1 tablet (25 mg total) by mouth 2 (two) times a day. FOR 30 DAYS cholecalciferol (VITAMIN D-3) 50 mcg (2,000 unit) capsule Take 1 capsule (2,000 Units total) by mouth 1 (one) time each day. FOR 30 DAYS DISPOSABLE GLOVES [facility] [place] uses 5 pair of gloves a day Dx N39.498 , N32.81 Lifetime Need Eliquis 5 mg tablet TAKE 1 TABLET BY MOUTH TWICE A DAY 60 tablet 5 gabapentin (NEURONTIN) 300 mg capsule TAKE 1 CAPSULE BY MOUTH TWICE A DAY 180 capsule 1 hydrALAZINE (APRESOLINE) 50 mg tablet Take 1 tablet (50 mg total) by mouth 3 (three) times a day. isosorbide mononitrate (IMDUR) 30 mg 24 hr tablet Take 2 tablets (60 mg total) by mouth 2 (two) times a day. FOR 30 DAYS lactulose (Generlac) solution Take 15 mL (10 g total) by mouth 1 (one) time each day. losartan (COZAAR) 100 mg tablet Take 1 tablet (100 mg total) by mouth 1 (one) time each day. NIFEdipine CC (ADALAT CC) 90 mg 24 hr tablet Take 1 tablet (90 mg total) by mouth 1 (one) time eachday. oxyBUTYnin XL (DITROPAN-XL) 10 mg 24 hr tablet TAKE 1 TABLET BY MOUTH EVERY DAY 90 tablet 1 polyethylene glycol (Golytely) 236-22.74-6.74 -5.86 gram solution Take 4L by mouth once for one dose. May substitue any PEG. Starting at 6PM the night before your procedure drink 1 8oz glasses at your own pace until you complete half of the gallon. Finish 2nd half of the gallon 5 hours before your procedure. 4000 mL 0 risperiDONE (RisperDAL) 1 mg tablet TAKE 1 TABLET BY MOUTH TWICE A DAY 180 tablet 1 terazosin (HYTRIN) 2 mg capsule Take 1 capsule (2 mg total) by mouth at bedtime. ALLERGIES: Allergies Allergen Reactions Lisinopril Cough Phenytoin PHYSICAL EXAM: Vitals: 04/07/24 1453 BP: 138/78 Pulse: 56 Temp: 36.8 ??C (98.3 ??F) SpO2: 92% APPEARANCE: Alert and in no acute distress EARS: External ears normal. HEART: RRR with normal S1 and S2, no murmurs LUNG: clear to auscultation LABS: Lab Results Component Value Date WBC 9.4 01/17/2024 HGB 12.8 (L) 01/17/2024 HCT 41.2 (L) 01/17/2024 MCV 84.4 01/17/2024 Lab Results Component Value Date NA 139 01/17/2024 K 4.6 01/17/2024 CO2 27 01/17/2024 CL 106 01/17/2024 BUN 26 (H) 01/17/2024 No results found for: TSH Lab Results Component Value Date HGBA1C 5.9 01/24/2023 CHOL 160 09/03/2023 LDL 90 09/03/2023 HDL 38 (A) 09/03/2023 TRIG 164 (A) 09/03/2023 No components found for: URINELEUK , URINENITR , URINEPRO , URINEPH , URINEBLD , URINESG , URINEKET , URINEBILI , URINEGLUC IMAGING: IMPRESSION: 1. Primary hypertension 2. Paroxysmal atrial fibrillation (CMS/HCC) 3. Type 2 diabetes mellitus with stage 3 chronic kidney disease, without long- term current use of insulin, unspecified whether stage 3a or 3b CKD (CMS/HCC) PLAN: documented in this encounter Plan of Treatment Upcoming Encounters Date Type Department Care Team (Late st Contact Info) Description 10/07/2024 3:00 PM EDT Office Visit Internal Medicine - [place] 175 [facility] [address] [place] [address] Luis Eduardo Hendrickson MD [address] [address] Scheduled Referrals Name Type Priority Associated Diagnoses Orde r Schedule Ambulatory referral to Cardiology Outpatient Referral Routine Paroxysmal atrial fibrillation (CMS/HCC) 1 Occurrences starting 04/07/2024 until 04/07/2025 documented as of this encounter Visit Diagnoses Diagnosis Primary hypertension- Primary Unspecified essential hypertension Paroxysmal atrial fibrillation (CMS/HCC) Atrial fibrillation Type 2 diabetes mellitus with stage 3 chronic kidney disease, without long-term current use of insulin, unspecified whether stage 3a or 3b CKD (CMS/HCC) documented in this encounter Discontinued Medications Medication Sig Discontinue Reason Start Date End Da te gabapentin (NEURONTIN) 300 mg capsule TAKE 1 CAPSULE BY MOUTH TWICE A DAY Reorder 12/20/2023 04/07/2024 Eliquis 5 mg tablet TAKE 1 TABLET BY MOUTH TWICE A DAY Reorder 12/20/2023 04/07/2024 isosorbide mononitrate (IMDUR) 30 mg 24 hr tablet Take 2 tablets (60 mg total) by mouth 2 (two) times a day. FOR 30 DAYS Reorder 04/06/2023 04/07/2024 losartan (COZAAR) 100 mg tablet Take 1 tablet (100 mg total) by mouth 1 (one) time each day. Reorder 03/19/2018 04/07/2024 documented as of this encounter Care Teams Gold Layer Relationship Specialty Start Date End Date Luis Eduardo Hendrickson MD [address] [address] PCP - General Internal Medicine 03/06/24 documented as of this encounter
--- OUTSIDE RECORDS SUMMARY | 2024-04-24 13:02 | XMS_ITS | Encounter Summary ---
Author Organization [facility] Address [address] [place] [address] Care Team Providers Care Bun Icer Name Role Phone Luis Eduardo Hendrickson MD Primary Care Provider [phone] Reason for Visit * Reason Onset Date Comments faxed form 03/26/2024 [employer] [facility] [facility]. Encounter Details Date Type Department Care Team ([facility] st Contact Info) Description 03/26/2024 Telephone Internal Medicine [facility] [address] [facility] [address] [place] [id number] Dinah Ramirez MA faxed form ([employer] Adult [facility].) Social History Tobacco Use Types Packs/Day Years [...] AM EST documented as of this encounter Progress Notes * Dinah Ramirez MA - 04/22/2024 1:46 PM EDT Office visit attached. Placed in providers folder for signature. * Rachel Vargas - 04/22/2024 1:42 PM EDT [facility] called and stated that they never received the PCP order form back. Please advise # [phone] * Dinah Ramirez MA - 03/28/2024 2:47 PM EST Patient has appointment 04/07 * Luis Eduardo Hendrickson MD - 03/26/2024 4:12 PM EST Can do a TB test anytime blood test have been ordered * Dinah Ramirez MA - 03/26/2024 3:29 PM EST [facility], [facility] PCP order form , this form is requesting TB test. documented in this encounter Plan of Treatment Upcoming Encounters Date Type Department Care Team (Late st Contact Info) Description 10/07/2024 3:00 PM EDT Office Visit Internal Medicine - [place] [address] [address] Luis Eduardo Hendrickson MD [address] [address] documented as of this encounter Visit Diagnoses Not on filedocumented in this encounter Care Teams Bun Icer Relationship Specialty Start Date End Date Luis Eduardo Hendrickson MD 175 [facility] [address] [place] [address] PCP - General Internal Medicine 03/06/24 documented as of this encounter
--- OUTSIDE RECORDS SUMMARY | 2024-04-24 13:02 | XMS_ITS | Encounter Summary ---
Author Organization [facility] Address [address] [facility] [address] [place] [address] Phone Care Team Providers Care Bottling Machine Operator Name Role Phone Luis Eduardo Hendrickson MD Primary Care Provider [phone] Encounter Details Date Type Department Care Team (Late st Contact Info) Description 02/26/2023 Office Communication [facility] [address] [place] [address] Abhijit Veliz MD [address] [facility] [address] [place] [address] Social History Tobacco Use Types Packs/Day Years Used Date Smoking Tobacco: Every Day Cigarettes Smokeless Tobacco: Never Alcohol Use Standard Drinks/Week Comments No 0 (1 standard drink = 0.6 oz pur e alcohol) Sex and Gender Information Value Date Recorded Sex Assigned at Not on file Legal Sex Male 5:09 PM EST Gender Identity Not on file Sexual Orientation Not on file documented as of this encounter Miscellaneous Notes * Telephone Encounter - Aleyda Mckeon - 02/27/2023 8:04 AM EST Patient seeing Dr[facility] * Telephone Encounter - Abhijit Veliz MD - 02/26/2023 9:28 PM EST Offer f/u with me in 3-5 wks documented in this encounter Plan of Treatment Not on file documented as of this encounter Visit Diagnoses Not on filedocumented in this encounter Care Teams Bottling Machine Operator Relationship Specialty Start Date End Date Luis Eduardo Hendrickson MD [address] [place] [id number] PCP - General 02/23/20 documented as of this encounter
--- OUTSIDE RECORDS SUMMARY | 2024-04-24 13:03 | XMS_ITS | Continuity of Care Document ---
Author Organization [facility] Address [address] [place] [address]- Care Team Providers Care Analytics Lead Name Role Phone Luis Eduardo Hendrickson MD Primary Care Physician [phone] Encounter [facility] Date(s): 03/05/24 - 04/04/24 [facility] [address] [place] [address]- Attending Physician: Shay Barrera Admitting Physician: Shay Barrera Referring Physician: Shay Barrera Encounter Type: Triage Allergies, Adverse Reactions, Alerts Substance Criticality Severity Reaction Reaction Severity Status lisinopril cough Active Dilantin Active Immunizations Given and Recorded Vaccine Date Status Refusal Reason [id number] 12y+ bivalent booster vax 06/26/22 Recorded [id number] 12y+ bivalent booster vax 11/05/21 Recorded influenza virus vaccine, inactivated 11/21/21 Ulices rded influenza virus vaccine, inactivated 10/12/20 Ulices rded influenza virus vaccine, inactivated 10/25/19 Ulices rded influenza virus vaccine, inactivated 11/05/18 Ulices rded influenza virus vaccine, inactivated 12/05/17 Ulices rded influenza virus vaccine, inactivated 9/1/16 Ulices rded influenza virus vaccine, inactivated 11/27/09 Ulices rded SARS-CoV-2 (COVID-19) mRNA BNT-162b2 vac 11/29/20 Recorded tetanus-diphtheria toxoids (Td) 10/03/18 Recorded pneumococcal 23-valent vaccine 04/11/16 Given Medications Albuterol (Eqv-ProAir HFA) 90 mcg/inh inhalation aerosol INHACE 2 PUFFS BY MOUTH EVERY 6 HOURS NEEDED FOR COUGH/WHEEZING OR SHORTNESS OF BREATH. Start Date: 06/16/23 Status: Ordered Repeat number: 1 aspirin 81 mg oral delayed release tablet = 81 mg, By Mouth, Daily, # 60 tablet, 0 Refills, Maintenance, 06/23/23 8:04:00 AM EDT, EC Tablet, [facility], Partial fill upon patient request if the prescription is for a schedule II opioid drug., 102.2, kg, 06/14/23 14:31:00 EDT, Dry Weight Start Date: 06/23/23 Stop Date: 08/22/23 Status: Ordered Quantity: 60.0 Unit: tablet Repeat number: 1 atorvastatin 40 mg oral tablet = 40 mg, By Mouth, Daily at bedtime, # 60 tablet, 0 Refills, Maintenance, 06/23/23 8:04:00 AM EDT, Tablet, [facility], Partial fill upon patient request if the prescription is for a schedule II opioid drug., 102.2, kg, 06/14/23 14:31:00 EDT, Dry Weight Start Date: 06/23/23 Stop Date: 08/22/23 Status: Ordered Quantity: 60.0 Unit: tablet Repeat number: 1 carvedilol 25 mg oral tablet TAKE ONE TABLET BY MOUTH 2 TIMES A DAY FOR 30 DAYS Start Date: 06/16/23 Status: Ordered Repeat number: 1 cloNIDine 0.1 mg oral tablet 0.2 mg, By Mouth, 3 times a day, # 180 tablet, Refills 0, Tot. Refills 0, Maintenance, 06/23/23 8:04:00 AM EDT, Route to Pharmacy Electronically, [facility], Partial fill upon patient request if the prescription is for a schedule II opioid drug., 102.2, kg, 06/14/23 14:31:00 EDT, Dry Weight Start Date: 06/23/23 Stop Date: 08/22/23 Status: Ordered Quantity: 180.0 Unit: tablet Repeat number: 1 doxazosin 1 mg oral tablet 2 mg, By Mouth, Daily at supper, # 60 tablet, Refills 0, Tot. Refills 0, Maintenance, 06/23/23 8:04:00 AM EDT, Route to Pharmacy Electronically, [facility], Partial fill upon patient request if the prescription is for a schedule II opioid drug., 102.2, kg, 06/14/23 14:31:00 EDT, Dry Weight Start Date: 06/23/23 Stop Date: 08/22/23 Status: Ordered Quantity: 60.0 Unit: tablet Repeat number: 1 Duoneb Inhalation Solution 3, mL, Neb, 4 times a day, Refills 0, Maintenance, 09/15/16 2:19:44 PM EDT, Inhalation Solution Start Date: 09/15/16 Status: Ordered Repeat number: 1 Eliquis 5 mg oral tablet TAKE 1 TABLET BY MOUTH TWICE A DAY Start Date: 06/16/23 Status: Ordered Repeat number: 1 hydrALAZINE 25 mg oral tablet 75 mg, By Mouth, Every 6 hours, # 240 tablet, Refills 0, Tot. Refills 0, Maintenance, 06/23/23 8:04:00 AM EDT, Route to Pharmacy Electronically, [facility] 3, Partial fill upon patient request if the prescription is for a schedule II opioid drug., 102.2, kg, 06/14/23 14:31:00 EDT, Dry Weight Start Date: 06/23/23 Stop Date: 08/22/23 Status: Ordered Quantity: 240.0 Unit: tablet Repeat number: 1 Neurontin 300 mg oral capsule 1 capsule, By Mouth, 2 times a day, 0 Refills, Maintenance, 09/25/10 8:21:42 PM EDT, Capsule Start Date: 09/25/10 Status: Ordered Repeat number: 1 NIFEdipine 90 mg oral tablet, extended release 90 mg, 1, tablet, By Mouth, Daily, TAKE 1 TABLET BY MOUTH EVERY DAY, # 90 tablet, Refills 0, Tot. Refills 0, Maintenance, 06/23/23 11:59:00 AM EDT, Route to Pharmacy Electronically, [facility] 3, Partial fill upon patient request if the prescription is for a schedule II opioid drug., 102.2, kg, 06/14/23 14:31:00 EDT, Dry Weight Start Date: 06/23/23 Stop Date: 09/21/23 Status: Ordered Quantity: 90.0 Unit: tablet Repeat number: 1 Risperdal 1 mg oral tablet 1 tablet = 1 mg, By Mouth, 2 times a day, 0 Refills, Maintenance, 09/25/10 8:20:38 PM EDT Start Date: 09/25/10 Status: Ordered Repeat number: 1 Problem List Condition Confirmation Course Effective Dates Status Health Status Informant Atrial fibrillation, chronic Confirmed Active COPD - Chronic obstructive pulmonary disease Confirmed Active Head injury 1 Confirmed Active Hepatitis C Confirmed Active Hypercholesterolemia Confirmed Active Hypertension Confirmed Active Mood disorder Confirmed Active Obese class I Confirmed Active Pancreatitis Confirmed Active Seizure disorder Confirmed Active 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 Sex Sex Representation Male (finding) Patient Care team information Care Team Personnel Name: Rosa Faustin RN Position: [facility] RN Member Role: Primary Care Nurse Name: Corine Mccord RN Position: [facility] SN RN Member Role: Primary Care Nurse Name: Andreia Key RN Position: [facility] RN Member Role: Primary Care Nurse Name: Bell Tovar RN Position: [facility] RN Member Role: Primary Care Nurse Name: Judy Savage RN Position: [facility] RN Member Role: Primary Care Nurse Name: Alice Hernandez RN Position: [facility] RN Member Role: Primary Care Nurse Name: Dian Ly RN Position: [facility] ED RN W/OE and Tasks Member Role: Primary Care Nurse Name: Maco Morales RN Position: [facility] RN Member Role: Primary Care Nurse Name: Nataliia Castellano NP Position: [facility] Associate Professional Member Role: Lifetime Consulting Provider Address: [address] [place] [address] [address] [facility] [place] [address]- Telecom: Name: Luis Eduardo Hendrickson MD Position: Reference Physician Member Role: PCP Address: [address] [place] [address] [address] [place] [address]- Telecom: Name: Robinson Adan DO Position: [facility] Renal MD Member Role: Lifetime Consulting Physician Address: [address] [facility] [address] [facility] [place] [place] [address]- Telecom: Name: Kaiden Kelley RN Position: [facility] RN Member Role: Primary Care Nurse Name: Neida Stahl Position: [facility] AMB Nurse Member Role: Lifetime Consulting Physician Name: Michlele Garcia RN Position: [facility] ED RN W/OE and Tasks Member Role: Primary Care Nurse Name: Omero Lowry RN Position: [facility] SN RN Member Role: Primary Care Nurse Name: Adamaris Lee RN Position: [facility] Leather Case Finisher Member Role: Primary Care Nurse Name: Myah Barrett RN Position: [facility] RN Member Role: Primary Care Nurse Name: Francisca Ramos RN Position: [facility] RN Member Role: Primary Care Nurse Care Team Related Persons Name: ELENI ROSALES Insurance Providers [facility] Information #: 1 Payer: NA Member Number: NA Policy Number: NA Group Number: [id number]
--- OUTSIDE RECORDS SUMMARY | 2024-04-24 13:03 | XMS_ITS | Clinical Summary ---
Author Organization [facility] Address [address] [facility] [address] [place] [address] Phone Care Team Providers Care Fixture Relamper Name Role Phone Luis Eduardo Hendrickson MD Primary Care Provider [phone] Allergies Active Allergy Reactions Criticality Noted Date Comments Lisinopril 09/20/2020 Phenytoin 09/20/2020 Medications gabapentin (NEURONTIN) 300 MG capsule Take 1 capsule by mouth 2 (two) times a day Active metoprolol tartrate (LOPRESSOR) 50 MG tablet Take 1 tablet by mouth 2 (two) times a day Active oxybutynin XL (DITROPAN-XL) 10 MG 24 hr tablet Take 1 tablet by mouth 1 (one) time each day Active risperiDONE (RisperDAL) 1 MG tablet Take 1 tablet by mouth 2 (two) times a day Active ammonium lactate (AMLACTIN) 12 % cream Apply topically if needed for dry skin Active lactulose (CHRONULAC) 10 GM/15ML solution Take 15 mL by mouth 1 (one) time each day Active Eliquis 5 MG tablet Take 5 mg by mouth 2 Active terazosin (HYTRIN) 5 MG capsule TAKE 1 CAPSULE BY MOUTH EVERY DAY 90 capsule 3 3 Active hydrALAZINE 100 MG tablet TAKE 1 TABLET (100 MG TOTAL) BY MOUTH IN THE MORNING AND IN THE EVENING 180 tablet 1 3 Active Active Problems Problem Noted Date Diagnosed Date Acute nontraumatic kidney injury 09/20/2020 Anemia 09/20/2020 Benign hypertensive renal disease 09/20/2020 Stage 3b chronic kidney disease 09/20/2020 Hypertensive disorder 09/20/2020 Hypokalemia 09/20/2020 Proteinuria 09/20/2020 Hypertension 09/20/2020 Total incontinence 11/15/2017 11/14/2022 Paroxysmal atrial fibrillation 06/28/2017 1 Constipation 02/20/2017 11/14/2022 Anticoagulant effect 11/21/2016 11/14/2022 H/O: respiratory disease 10/10/2016 023 Autonomic neuropathy 08/02/2016 11/14/2022 Chronic cholecystitis 08/02/2016 11/14/2022 Chronic viral hepatitis C 08/02/20162022 Hypomagnesemia 08/02/2016 11/14/2022 Memory impairment 08/02/2016 11/14/2022 Onychomycosis 08/02/2016 11/14/2022 Traumatic brain injury 08/02/2016 Overactive bladder 08/02/2016 11/14/2022 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 08/02/2016 11/14/2022 Ventral hernia 08/02/2016 11/14/2022 Internal hemorrhoids 08/29/2011 11/14/2022 Resolved Problems Problem Noted Date Diagnosed Date Resolved Date Acute non-ST segment elevati on myocardial infarction 09/20/2020 09/20/2020 Chronic obstructive pulmonary disease 09/20/2020 09/20/2020 Diabetes mellitus 09/20/2020 09/20/2020 Leukocytosis 09/20/2020 09/20/2020 Metabolic encephalopathy 09/20/202010/2020 Respiratory failure 09/20/2020 09/21/19 Seizure disorder 09/20/2020 09/20/2020 Immunizations Name Administration Dates Next Due DTaP 10/03/2018 Influenza Split High Dose Preservative Free IM 0 10/25/2019 Pneumococcal Conjugate 13-Valent 11/15/2017 Family History Medical History Relation Comments Hypertension Father Stroke Father Hypertension Mother Kidney disease Mother Relation Status Comments Father Mother Alive Social History Tobacco Use Types Packs/Day Years Used Date Smoking Tobacco: Every Day Cigarettes Smokeless Tobacco: Never Tobacco Cessation:Ready to Q uit: Not Asked; Counseling Given: Not Answered Alcohol Use Standard Drinks/Week Comments No 0 (1 standard drink = 0.6 oz pur e alcohol) Sex and Gender Information Value Date Recorded Sex Assigned at Not on file Legal Sex Male 5:09 PM EST Gender Identity Not on file Sexual Orientation Not on file Last Filed Vital Signs Vital Sign Reading Time Taken Comments Blood Pressure 140/80 11/14/2022 3:37 PM EDT Pulse 72 11/14/2022 3:37 PM EDT Temperature - - Respiratory Rate - - Oxygen Saturation 93% 11/14/2022 3:37 PM EDT Inhaled Oxygen Concentration - - Weight 113 kg (250 lb 3.2 oz) 11/14/2022 3:37 PM EDT Height 177.8 cm (5' 10 ) 05/05/2019 12:00 PM EDT Body Mass Index 35.9 05/05/2019 12:00 PM EDT Plan of Treatment Health Maintenance Due Date Last Done Comments Colorectal Cancer Screening: Annual FOBT 2001 Colorectal Cancer Screening: Colonoscopy 2001 Colorectal Cancer Screening: Sigmoidoscopy 2001 Pneumococcal Vaccine: 65+ Years (2 of 2 - PPSV23 or PCV20) 01/10/2018 10/03/2022, 11/15/2017 Diabetes: Hemoglobin A1C 11/14/2022 022, 07/12/2018 Diabetes: Ophthalmology Exam 11/14/2022 Diabetes: Pedal Pulse Checked 11/14/2022 Diabetes: Sensory Foot Exam 11/14/2022 Diabetes: Visual Foot Exam 11/14/2022 Influenza Vaccine (#1) 2023 10/25/2019 Hepatitis B Vaccine Aged Out No longe r eligible based on patient's age to complete this topic Procedures Procedure Name Priority Date/Time Associated Diagnosis Comments HEMOGLOBIN A1C Routine 09/27/2021 3:47 PM EDT from Last 3 Months or Most Recently Relevant to Health Maintenance Results * (ABNORMAL) Hemoglobin A1c (09/27/2021 3:47 PM EDT) Hemoglobin A1C 6.3(H) (4.0-5.6) % [facility] Comment: MONITORING: In known diabetic patients, hemoglobin A1c targets should be discussed with health care provider. DIAGNOSTIC USE: ??The [place] Diabetes Association (ADA) and the World Health Organization (WHO) recommend the use of HbA1c to diagnose diabetes using a threshold of 6.5%. Patients who have an HbA1c between 5.7% and 6.4% are considered at increased risk for developing diabetes in the future. CAUTION: Falsely low HbA1c results may be observed in patients with hemolytic anemia, homozygous forms of abnormal hemoglobin (e.g. SS, CC, SC), , recent blood loss or hemoglobin F greater than 7%. Fructosamine may be used as an alternate test in these cases. REFERENCE: ADA: Standards of Medical Care in Diabetes 2020, The Journal of Clinical and Applied Research and Education Volume 43, Supplement 1 Testing performed or reported by [facility] Reference [employer], a Service of [facility], [address] [place] [id number] Sami Patel MD, Rn Travel [facility]# [id number] 09/27/2021 3:47 PM EDT 09/27/2021 3:49 PM EDT Noman Castillo MD LAB BLOOD ORDERABLES Final Re sult [facility] from Last 3 Months or Most Recently Relevant to Health Maintenance Insurance ([id number]) [place] [id number] [place] [address] ([id number]) [place] [id number] Care Teams Fixture Relamper Relationship Specialty Start Date End Date Luis Eduardo Hendrickson MD [address] [place] [address] PCP - General 02/23/20
--- OUTSIDE RECORDS SUMMARY | 2024-04-24 13:03 | XMS_ITS | Clinical Summary ---
Author Organization [facility] Address [address] [place] [address] Care Team Providers Care Ent Consultant Name Role Phone Luis Eduardo Hendrickson MD Primary Care Provider Unavailab le Allergies No known active allergies Medications Medication Sig Dispensed Refills Start Date End Date Status gabapentin (NEURONTIN) 300 MG capsule Take 1 capsule (300 mg total) by mouth 2 (two) times a day. 0 Active NIFEdipine (PROCARDIA XL) 90 MG 24 hr tablet Take 1 tablet (90 mg total) by mouth daily. 0 Active risperiDONE (RISPERDAL M-TABS) 1 MG disintegrating tablet Take 1 tablet (1 mg total) by mouth 2 (two) times a day. 0 Active apixaban (ELIQUIS) 5 MG TABS tablet Take by mouth every 12 (twelve) hours. 0 Active hydrALAZINE (APRESOLINE) 25 MG tablet Take 1 tablet (25 mg total) by mouth 3 (three) times a day. 0 Active atorvastatin (LIPITOR) tablet 40 mg Take 1 tablet (40 mg total) by mouth daily. 0 Active doxazosin (CARDURA) 2 MG tablet Take 1 tablet (2 mg total) by mouth every night at bedtime. 0 Active cloNIDine (CATAPRES) 0.2 MG tablet Take 1 tablet (0.2 mg total) by mouth 2 (two) times a day. 0 Active oxybutynin (DITROPAN-XL) 10 MG 24 hr tablet Take 1 tablet (10 mg total) by mouth daily. 0 Active carvedilol (COREG) 25 MG tablet Take by mouth 2 (two) times a day with meals. 0 Active vitamin D3 (cholecalciferol) 25 MCG (1000 UT) tablet Take 1 tablet (25 mcg total) by mouth daily. 0 Active aspirin EC 81 MG tablet Take 1 tablet (81 mg total) by mouth daily. 0 Active albuterol (ACCUNEB) 1.25 MG/3ML nebulizer solution Take 3 mL (1.25 mg total) by nebulization every 6 (six) hours as needed for wheezing. 0 Active Active Problems No known active problems Family History Medical History Relation Name Comments Cancer Sister breast Relation Name Status Comments Sister Social History Tobacco Use Types Packs/Day Years Used Date Smoking Tobacco: Every Day Cigarettes 0.5 Smokeless Tobacco: Never Alcohol Use Standard Drinks/Week Comments No 0 (1 standard drink = 0.6 oz pur e alcohol) Sex and Gender Information Value Date Recorded Sex Assigned at Not on file Gender Identity Not on file Sexual Orientation Not on file Job Start Date Occupation Industry Not on file Not on file Not on file Last Filed Vital Signs Vital Sign Reading Time Taken Comments Blood Pressure 126/68 10/02/2023 3:27 PM EDT Pulse 70 10/02/2023 3:27 PM EDT Temperature 37.1 ??C (98.8 ??F) 10/02/2023 3:27 PM ED T Respiratory Rate - - Oxygen Saturation 95% 10/02/2023 3:27 PM EDT Inhaled Oxygen Concentration - - Weight 112 kg (247 lb) 10/02/2023 3:27 PM EDT Height 175.3 cm (5' 9 ) 10/02/2023 3:27 PM EDT Body Mass Index 36.48 10/02/2023 3:27 PM EDT Plan of Treatment Health Maintenance Due Date Last Done Comments Hepatitis C Screening 1952 Depression Screening 1964 Preventative Health Evaluation 1970 Colon Cancer Screening (Colonoscopy) 1997 Shingrix-Zoster Vaccine (1 of 2) 2002 Fall Risk Assessment 2017 COVID-19 Vaccine (2 - season) 2023 11/29/2020 Influenza Vaccine (#1) 2023 2, 10/12/2020, 10/25/2019, Additional history exists RSV Adult > 60+ Yrs or (1 - 1-dose 75+ series) 08/17/2027 DTap / Tdap / Td (3 - Tdap) 10/03/2028 10/03/2018, 0 10/03/2018 Pneumococcal Vaccine Completed 10/03/2022, 11/15/2017, 04/11/2016 Hepatitis B Vaccines Aged Out No long er eligible based on patient's age to complete this topic RSV Ped < 20 months Aged Out No longe r eligible based on patient's age to complete this topic Care Teams Ent Consultant Relationship Specialty Start Date End Date Luis Eduardo Hendrickson MD PCP - General Internal Medicine 12/29/21
--- OUTSIDE RECORDS SUMMARY | 2024-04-24 13:03 | XMS_ITS | Clinical Summary ---
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 DX E11.49 11/28/19 20 Active blood pressure test kit-large kit 1 Units by Not Applicable route 1 (one) time each day. DX hypertension 11/25/19 20 Active DISPOSABLE GLOVES MISC Pt uses 5 pair of gloves a day Dx N39.498 , N32.81 Lifetime Need 02/08/20 19 Active blood sugar diagnostic (FreeStyle Lite Strips) test strip 2 (two) times a day. USE DIRECTED 10/21/19 23 Active ammonium lactate (AMLACTIN) 12 % cream Apply topically 1 (one) time each day. APPLY TO BOTTOM OF FEET DAILY AND COVER WITH SOCKS 03/19/19 19 Active bisacodyL (Dulcolax, bisacodyl,) 5 mg EC tablet Take 4 tabs 1-2 hours prior to taking the bowel prep 10/25/19 19 Active carvediloL (COREG) 25 mg tablet Take 1 tablet (25 mg total) by mouth 2 (two) times a day. FOR 30 DAYS 04/06/19 24 Active cholecalciferol (VITAMIN D-3) 50 mcg (2,000 unit) capsule Take 1 capsule (2,000 Units total) by mouth 1 (one) time each day. FOR 30 DAYS 03/30/19 24 Active hydrALAZINE (APRESOLINE) 50 mg tablet Take 1 tablet (50 mg total) by mouth 3 (three) times a day. 01/18/20 21 Active lactulose (Generlac) solution Take 15 mL (10 g total) by mouth 1 (one) time each day. 06/07/19 19 Active NIFEdipine CC (ADALAT CC) 90 mg 24 hr tablet Take 1 tablet (90 mg total) by mouth 1 (one) time each day. 01/08/20 18 Active terazosin (HYTRIN) 2 mg capsule Take 1 capsule (2 mg total) by mouth at bedtime. Active risperiDONE (RisperDAL) 1 mg tablet TAKE 1 TABLET BY MOUTH TWICE A DAY 180 tablet 1 01/24/20 24 Active albuterol HFA (PROAIR HFA ; PROVENTIL HFA ; VENTOLIN HFA) 90 mcg/actuation inhaler INHACE 2 PUFFS BY MOUTH EVERY 6 HOURS NEEDED FOR COUGH/WHEEZING OR SHORTNESS OF BREATH. 8.5 each 11 01/25/20 24 Active oxyBUTYnin XL (DITROPAN-XL) 10 mg 24 hr tablet TAKE 1 TABLET BY MOUTH EVERY DAY 90 tablet 1 01/24/20 24 Active polyethylene glycol (Golytely) 236-22.74-6.74 -5.86 gram solution Take 4L by mouth once for one dose. May substitue any PEG. Starting at 6PM the night before your procedure drink 1 8oz glasses at your own pace until you complete half of the gallon. Finish 2nd half of the gallon 5 hours before your procedure. 4000 mL 03/04/19 25 Active bisacodyL (DULCOLAX) 5 mg EC tablet Take 2 tablets by mouth right before beginning bowel prep. See instructions provided by the office 2 tablet 03/04/19 25 Active aspirin 81 mg EC tablet Take 1 tablet (81 mg total) by mouth 1 (one) time each day. Active apixaban (Eliquis) 5 mg tablet Take 1 tablet (5 mg total) by mouth 2 (two) times a day. 60 tablet 5 04/07/19 25 Active gabapentin (NEURONTIN) 300 mg capsule Take 1 capsule (300 mg total) by mouth 2 (two) times a day. 180 capsule 1 04/07/19 25 Active isosorbide mononitrate (IMDUR) 30 mg 24 hr tablet Take 2 tablets (60 mg total) by mouth 2 (two) times a day. FOR 30 DAYS 180 tablet 1 04/07/19 25 Active losartan (COZAAR) 100 mg tablet Take 1 tablet (100 mg total) by mouth 1 (one) time each day. 90 each 1 04/07/19 25 025 Active gabapentin (NEURONTIN) 300 mg capsule TAKE 1 CAPSULE BY MOUTH TWICE A DAY 180 capsule 1 12/20/19 24 025 Discontin ued(Reord er) Eliquis 5 mg tablet TAKE 1 TABLET BY MOUTH TWICE A DAY 60 tablet 5 12/20/19 24 025 Discontin ued(Reord er) isosorbide mononitrate (IMDUR) 30 mg 24 hr tablet Take 2 tablets (60 mg total) by mouth 2 (two) times a day. FOR 30 DAYS 04/06/19 24 025 Discontin ued(Reord er) losartan (COZAAR) 100 mg tablet Take 1 tablet (100 mg total) by mouth 1 (one) time each day. 03/19/19 19 025 Discontin ued(Reord er) Active Problems Problem Noted Date Diagnosed Date Total incontinence 11/15/2017 Paroxysmal atrial fibrillation 06/28/2017 Constipation 02/20/2017 Autonomic neuropathy 08/02/2016 Chronic cholecystitis 08/02/2016 Chronic hepatitis C 08/02/2016 Diabetes mellitus type 2 with neurological manif estations 08/02/2016 DM (diabetes mellitus), type 2 with renal compli cations 08/02/2016 Hypertension 08/02/2016 Hypokalemia 08/02/2016 Hypomagnesemia 08/02/2016 Memory impairment 08/02/2016 Microalbuminuria 08/02/2016 Onychomycosis 08/02/2016 Overactive bladder 08/02/2016 Seizure disorder 08/02/2016 TBI (traumatic brain injury) 08/02/2016 Ventral hernia 08/02/2016 CKD (chronic kidney disease) stage 3, GFR 30-59 ml/min 07/24/2013 Overview (12/28/2023): Dr Farrell Internal hemorrhoids 08/29/2011 Encounters Date Type Department Care Team Description 04/07/2024 3:00 PM EST Office Visit Internal Medicine - [place] [address] [address] Luis Eduardo Hendrickson MD Primary hypertension (Primary Dx); Paroxysmal atrial fibrillation (CMS/HCC); Type 2 diabetes mellitus with stage 3 chronic kidney disease, without long-term current use of insulin, unspecified whether stage 3a or 3b CKD (CMS/HCC) 03/26/2024 Telephone Internal Medicine - [place] [address] [address] Dinah Ramirez MA faxed form ([employer] 03/18/2024 9:40 AM EST Anesthesia Event [facility] Endoscopy [address] [place] [address] Toño Salinas MD 03/18/2024 8:54 AM EST - 03/18/2024 11:59 PM EST Hospital Encounter [facility] Endoscopy [address] [place] [id number] Jessica Bethea MD History of colon polyps Discharge Disposition: Home or Self Care 02/14/2024 Telephone Gastroenterology - [place] [address] [address] Yennifer Piedra LPN Anticoagulation (Colonoscopy on 03/18/[address] Bethea) from Last 3 Months Immunizations Name Administration Dates Next Due Influenza trivalent, 0.5mL (Fluad) 65yo and olde r 11/05/2023,10/25/2019 Pfizer SARS-CoV-2 COVID-19, mRNA, LNP-S, preservative free 11/05/2023,11/29/2020 Pneumococcal conjugate 13 va lent (Prevnar 13, PCV13) 2mo and older 11/15/2017 Pneumococcal conjugate 20 va lent (Prevnar 20, PCV 20) 2mo and older 10/03/2022 Td Tetanus diptheria (Tdvax) 7yo and older 10/03 Surgical History Surgery Date Site/Laterality Comments ANKLE SURGERY PROCEDURE: HISTORICAL ANKLE SURGERY OTHER SURGICAL HISTORY PROCEDURE: HISTORY OTHER; COMMENT: brain surgery Medical History Medical History Date Comments Diabetes mellitus ([facility]/HCC) DX:D iabetes mellitus (HCC) Hypertension DX:Hypertension Diabetes mellitus type 2 wit h neurological manifestations (CMS/HCC) 08/02/2016 DX:Diabetes sherrell itus type 2 with neurological manifestations ([facility]) Onychomycosis 08/02/2016 DX:Onychomycosis Chronic cholecystitis 08/02/2016 DX:Chronic cholecystitis Chronic hepatitis C (CMS/HCC) 08/02/2016 DX :Chronic hepatitis C (HCC) Microalbuminuria 08/02/2016 DX:Microalbumin uria Hypertension 08/02/2016 DX:Hypertension Hypokalemia 08/02/2016 DX:Hypokalemia Overactive bladder 08/02/2016 DX:Overactive bladder DM (diabetes mellitus), type 2 with renal complications (CMS/HCC) 08/02/2016 DX:DM (diabetes mellitus ), type 2 with renal complications ([facility]) Seizure disorder ([facility]) 08/02/2016 DX:Se izure disorder ([facility]) Autonomic neuropathy 08/02/2016 DX:Autonomi c neuropathy CKD (chronic kidney disease) stage 3, GFR 30-59 ml/min (CMS/[facility]) 07/24/2013 DX:CKD (chronic kidney dise ase) stage 3, GFR 30-59 ml/min ([facility]) TBI (traumatic brain injury) ([facility]/HCC) 08/02/2016 DX:TBI (traumatic brain injury) ([facility]) Ventral hernia 08/02/2016 DX:Ventral herni a Memory impairment 08/02/2016 DX:Memory impa irment Hypomagnesemia 08/02/2016 DX:Hypomagnesemi a Anticoagulated on Coumadin 11/21/2016 DX:An ticoagulated on Coumadin Constipation 02/20/2017 DX:Constipation History of respiratory failure 10/10/2016 D X:History of respiratory failure Internal hemorrhoids 08/29/2011 DX:Internal hemorrhoids Paroxysmal atrial fibrillati on ([facility]/HCC) 06/28/2017 DX:Paroxysmal atrial fibrill ation ([facility]) Total incontinence 11/15/2017 DX:Total inco ntinence Family History Medical History Relation Name Comments Heart attack Father Other: dialysis Mother Cancer Sister breast Relation Name Status Comments Father Mother Sister Social History Tobacco Use Types Packs/Day [...] Orientation Straight 03/06/2024 8: 53 AM EST Obstetrics History Last Filed Vital Signs Vital Sign Reading Time Taken Comments Blood Pressure 138/78 04/07/2024 2:53 PM EST Pulse 56 04/07/2024 2:53 PM EST Temperature 36.8 ??C (98.3 ??F) 04/07/2024 2:53 PM ES T Respiratory Rate 21 03/18/2024 10:36 AM EST Oxygen Saturation 92% 04/07/2024 2:53 PM EST Inhaled Oxygen Concentration - - Weight 112 kg (246 lb 6.4 oz) 04/07/2024 2:53 PM EST Height 177.8 cm (5' 10 ) 03/18/2024 9:34 AM EST Body Mass Index 35.35 03/18/2024 9:34 AM EST Plan of Treatment Upcoming Encounters Date Type Department Care Team (Late st Contact Info) Description 10/07/2024 3:00 PM EDT Office Visit Internal Medicine - [place] [address] [facility] [address] [place] [address] Luis Eduardo Hendrickson MD 175 [facility] [address] [place] [address] Health Maintenance Due Date Last Done Comments Diabetes: Annual Foot Exam 1962 Diabetes: Annual Retina Eye Exam 1962 Hepatitis A Vaccines (1 of 2 - Risk 2-dose series) 08/17/1971 Zoster Vaccines (1 of 2) 2002 Hepatitis B Vaccines (1 of 3 - Risk 3-dose series) 2012 RSV Immunization Patients 60+ Years Old (1 - Risk 60-74 years 1-dose series) 2012 Depression Screening 01/21/2022 Osteoporosis Screening (Bone Density Screening) 01/21/2022 Social Influencers of Health Screening 01/21/2022 Diabetes: Annual Urine Albumin-Creatinine Ratio (uACR) 01/22/2022 07/12/2018 Diabetes: Blood Sugar Control Test (HGBA1C) 07/26/2023 01/24/2023, 09/27/2021 Medicare Annual Wellness Visit 10/04/2023 10/03/2022 COVID-19 Vaccine ( season) 2023 11/05/2023, 06/26/2022, 11/05/2021, Additional history exists Diabetes: Annual GFR (Glomerular Filtration Rate) 01/16/2025 01/17/2024, 09/03/2023, 09/03/2023 Hypertension/CHF/CAD Annual BMP Blood Test 01/16/2025 01/17/2024, 09/03/2023, 09/03/2023 Colorectal Cancer Screening: Colonoscopy 03/18/2025 03/18/2024, 12/24/2018 Falls Risk Assessment 03/18/2025 03/18/2024 Cholesterol Screening (Lipid Panel) 09/02/2028 09/03/2023, 09/03/2023 DTaP,Tdap,and Td Vaccines (2 - Td or Tdap) 10/03/2028 10/03/2018, 10/03/2018 Hepatitis C Screening Completed 10/03/2018 Abdominal Aortic Aneurysm (AAA) Screen Completed 10/23/2018, 10/23/2018 Pneumococcal Vaccine: 50+ Years Completed 10/03/2022, 11/15/2017, 04/11/2016 Influenza Vaccine Completed 11/05/2023, , 10/12/2020, Additional history exists HIB Vaccines Aged Out No longer eligi ble based on patient's age to complete this topic HPV Vaccines Aged Out No longer eligi ble based on patient's age to complete this topic IPV Vaccines Aged Out No longer eligi ble based on patient's age to complete this topic MMR Vaccines Aged Out No longer eligi ble based on patient's age to complete this topic Meningococcal ACWY Vaccine Aged Out N o longer eligible based on patient's age to complete this topic Meningococcal B Vacine Aged Out No lo nger eligible based on patient's age to complete this topic RSV Immunization Patients Under 20 months Aged Out No longer eligible based on patient's age to complete this topic Varicella Vaccines Aged Out No longer eligible based on patient's age to complete this topic Procedures Procedure Name Priority Date/Time Associated Diagnosis Comments COLONOSCOPY Routine 03/18/2024 10:15 AM EST History of colon polyps TISSUE EXAM Routine 03/18/2024 9:48 AM EST History of colon polyps CREATININE, SERUM Routine 01/17/2024 2:0 4 PM EST Chronic kidney disease (CKD) stage G3b/A1, moderately decreased glomerular filtration rate (GFR) between 30-44 mL/min/1.73 square meter and albuminuria creatinine ratio less than 30 mg/g ([facility]/HCC) Essential hypertension, benign LIPID PANEL Routine 09/03/2023 HEMOGLOBIN A1C Routine 01/24/2023 US ABDOMINAL AORTA REAL TIME SCREEN STUDY AAA Routine 10/23/2018 11:00 AM EDT Personal history of nicotine dependence HEPATITIS C SCREENING Routine 10/03/2018 URINE ALBUMIN CREATININE RATIO Routine 07/12/2018 from Last 3 Months or Most Recently Relevant to Health Maintenance Results * COLONOSCOPY Anesthesia - MAC; [facility] ENDOSCOPY (03/18/2024 10:15 AM EST) Anatomical Region Laterality Modality Endoscopy 03/18/2024 9:40 AM EST Impressions 03/18/2024 10:21 AM EST - 14 1 to 3 mm polyps in the transverse colon, removed ? with a cold snare. Resected and retrieved. ? - One 15 mm polyp in the mid transverse colon, removed ? using injection-lift and a cold snare. Resected and ? retrieved. Clips (MR conditional) were placed. Clip ? steam distribution supervisor: WHMSOFT. ? - The examination was otherwise normal on direct and ? retroflexion views. Recommendation: ?- Discharge patient to home. ? - Await pathology results. ? - Repeat colonoscopy in 1 year for surveillance. Narrative 03/18/2024 10:21 AM EST [facility] GI Patient Name: Gian Garcia Procedure Date: 03/18/2024 9:40 AM Date of : 1950 Age: 73 Gender: Male Note Status: Finalized Attending MD: Jessica Bethea MD, Procedure Date No Time: 03/18/2024 Procedure: ? Colonoscopy Indications: ? High risk colon cancer surveillance: Personal history ? of colonic polyps Providers: ? Jessica Bethea MD Referring MD: ?Jessica Bethea MD Medicines: ? Monitored Anesthesia Care Complications: ? No immediate complications. Estimated blood loss: ? Minimal. Estimated Blood Loss: ? Estimated blood loss was minimal. Procedure: ? Pre-Anesthesia Assessment: ? - Prior to the procedure, a History and Physical was ? performed, and patient medications and allergies were ? reviewed. The patient is competent. The risks and ? benefits of the procedure and the sedation options and ? risks were discussed with the patient. All questions ? were answered and informed consent was obtained. ? Patient identification and proposed procedure were ? verified by the physician, the nurse, the brazing machine operator helper ? and the internetworking technician in the pre-procedure area in the ? endoscopy suite. Mental Status Examination: alert and ? oriented. Airway Examination: normal oropharyngeal ? airway and neck mobility. Respiratory Examination: ? clear to auscultation. CV Examination: normal. ? Prophylactic Antibiotics: The patient does not require ? prophylactic antibiotics. Prior Anticoagulants: The ? patient has taken no anticoagulant or antiplatelet ? agents. ASA Grade Assessment: III - A patient with ? severe systemic disease. After reviewing the risks and ? benefits, the patient was deemed in satisfactory ? condition to undergo the procedure. The anesthesia ? plan was to use monitored anesthesia care (MAC). ? Immediately prior to administration of medications, ? the patient was re-assessed for adequacy to receive ? sedatives. The heart rate, respiratory rate, oxygen ? saturations, blood pressure, adequacy of pulmonary ? ventilation, and response to care were monitored ? throughout the procedure. The physical status of the ? patient was re-assessed after the procedure. ? After I obtained informed consent, the scope was ? passed under direct vision. Throughout the procedure, ? the patient's blood pressure, pulse, and oxygen ? saturations were monitored continuously. The Olympus ? Colonoscope was introduced through the anus and ? advanced to the cecum, identified by appendiceal ? orifice and ileocecal valve. The colonoscopy was ? performed without difficulty. The patient tolerated ? the procedure well. The quality of the bowel ? preparation was good. Findings: ?The perianal and digital rectal examinations were ? normal. ? 14 sessile polyps were found in the transverse colon. ? The polyps were 1 to 3 mm in size. These polyps were ? removed with a cold snare. Resection and retrieval ? were complete. Estimated blood loss was minimal. ? A 15 mm polyp was found in the mid transverse colon. ? The polyp was flat and umbilicated. The polyp was ? removed with a saline injection-lift technique using a ? cold snare. Resection and retrieval were complete. To ? prevent bleeding after the polypectomy, three ? hemostatic clips were successfully placed (MR ? conditional). Clip steam distribution supervisor: WHMSOFT. ? There was no bleeding at the end of the procedure. ? Estimated blood loss was minimal. ? The exam was otherwise without abnormality on direct ? and retroflexion views. Procedure Code(s): ? --- Professional --- ? 64115, Colonoscopy, flexible; with removal of ? tumor(s), polyp(s), or other lesion(s) by snare ? technique ? 15634, Colonoscopy, flexible; with directed submucosal ? injection(s), any substance Diagnosis Code(s): ? --- Professional --- ? D12.3, Benign neoplasm of transverse colon (hepatic ? flexure or splenic flexure) CPT copyright 2020 [employer]. All rights reserved. The codes documented in this report are preliminary and upon dog races manager review may be revised to meet current compliance requirements. Jessica Bethea MD 03/18/2024 10:21:55 AM This report has been signed electronically.Jessica Bethea MD Number of Addenda: 0 Note Initiated On: 03/18/2024 9:40 AM Scope Withdrawal Time: 0 hours 28 minutes 19 seconds Scope In: 9:46:14 AM Scope Out: 10:17:44 AM ? Endoscopy Department at [facility] - [address] [place] [address], ? [place] [address] Procedure Note Jessica Bethea MD - 03/18/2024 [facility] GI Patient Name: Gian Garcia Procedure Date: 03/18/2024 9:40 AM Date of : 1950 Age: 73 Gender: Male Note Status: Finalized Attending MD: Jessica Bethea MD, Procedure Date No Time: 03/18/2024 Procedure: Colonoscopy Indications: High risk colon cancer surveillance: Personalhistory of colonic polyps Providers: Jessica Bethea MD Referring MD: Jessica Bethea MD Medicines: Monitored Anesthesia Care Complications: No immediate complications. Estimated blood loss: Minimal. Estimated Blood Loss: Estimated blood loss was minimal. Procedure: Pre-Anesthesia Assessment: - Prior to the procedure, a History and Physicalwas performed, and patient medications and allergieswere reviewed. The patient is competent. The risks and benefits of the procedure and the sedation optionsand risks were discussed with the patient. Allquestions were answered and informed consent was obtained. Patient identification and proposed procedure were verified by the physician, the nurse, theanesthetist and the internetworking technician in the pre-procedure area in the endoscopy suite. Mental Status Examination: alertand oriented. Airway Examination: normal oropharyngeal airway and neck mobility. Respiratory Examination: clear to auscultation. CV Examination: normal. Prophylactic Antibiotics: The patient does notrequire prophylactic antibiotics. Prior Anticoagulants: The patient has taken no anticoagulant or antiplatelet agents. ASA Grade Assessment: III - A patient with severe systemic disease. After reviewing the risksand benefits, the patient was deemed in satisfactory condition to undergo the procedure. The anesthesia plan was to use monitored anesthesia care (MAC). Immediately prior to administration of medications, the patient was re-assessed for adequacy to receive sedatives. The heart rate, respiratory rate, oxygen saturations, blood pressure, adequacy of pulmonary ventilation, and response to care were monitored throughout the procedure. The physical status ofthe patient was re-assessed after the procedure. After I obtained informed consent, the scope was passed under direct vision. Throughout theprocedure, the patient's blood pressure, pulse, and oxygen saturations were monitored continuously. TheOlympus Colonoscope was introduced through the anus and advanced to the cecum, identified by appendiceal orifice and ileocecal valve. The colonoscopy was performed without difficulty. The patient tolerated the procedure well. The quality of the bowel preparation was good. Findings: The perianal and digital rectal examinations were normal. 14 sessile polyps were found in the transversecolon. The polyps were 1 to 3 mm in size. These polypswere removed with a cold snare. Resection and retrieval were complete. Estimated blood loss was minimal. A 15 mm polyp was found in the mid transversecolon. The polyp was flat and umbilicated. The polyp was removed with a saline injection-lift techniqueusing a cold snare. Resection and retrieval were complete.To prevent bleeding after the polypectomy, three hemostatic clips were successfully placed (MR conditional). Clip steam distribution supervisor: WHMSOFT. There was no bleeding at the end of the procedure. Estimated blood loss was minimal. The exam was otherwise without abnormality ondirect and retroflexion views. Procedure Code(s): --- Professional --- 65485, Colonoscopy, flexible; with removal of tumor(s), polyp(s), or other lesion(s) by snare technique 95568, Colonoscopy, flexible; with directedsubmucosal injection(s), any substance Diagnosis Code(s): --- Professional --- D12.3, Benign neoplasm of transverse colon (hepatic flexure or splenic flexure) CPT copyright 2020 [employer]. All rights reserved. The codes documented in this report are preliminary and upon dog races manager reviewmay be revised to meet current compliance requirements. Jessica Bethea MD 03/18/2024 10:21:55 AM This report has been signed electronically.Jessica Bethea MD Number of Addenda: 0 Note Initiated On: 03/18/2024 9:40 AM Scope Withdrawal Time: 0 hours 28 minutes 19 seconds Scope In: 9:46:14 AM Scope Out: 10:17:44 AM Endoscopy Department at [facility] - [address] [place] [id number] IMPRESSION: - 14 1 to 3 mm polyps in the transverse colon, removed with a cold snare. Resected and retrieved. - One 15 mm polyp in the mid transverse colon,removed using injection-lift and a cold snare. Resected and retrieved. Clips (MR conditional) were placed. Clip steam distribution supervisor: WHMSOFT. - The examination was otherwise normal on directand retroflexion views. Recommendation: - Discharge patient to home. - Await pathology results. - Repeat colonoscopy in 1 year for surveillance. us Jessica Bethea MD GI~PROCEDURE ORDERABLES Fin al Result * Tissue exam (03/18/2024 9:48 AM EST) Final Diagnosis A. Transverse colon polyps x14: Tubular adenomas, multiple fragments Benign colonic mucosa, multiple fragments B. Distal transverse colon polyp: Tubular adenoma 03/19/2024 12:27 PM [facility] Gross Description A. Large Intestine, Transverse Colon, polyps x14: Labeled trans colon polyps x 14 . Received in formalin, are multiple (greater than 15) irregular soft to rubbery, maxwell-pink to red, mucosal tissue fragments, approximately ranging from less than 0.1 cm to 1.2 cm in greatest diameters, admixed with fecal/food debris, and aggregating to 1.5 x 1.3 x 0.2 cm. The specimen is wrapped in paper and submitted in toto in one cassette, multiple pieces, multiple levels. Please note: Small tissue fragments may not survive processing. B. Large Intestine, Transverse Colon, distal polyp x1: Labeled distal trans colon . Received in formalin, are multiple irregular soft to rubbery, maxwell-pink to red, mucosal tissue fragments, approximately ranging from less than 0.1 cm to 2.4 cm in greatest diameters and aggregating to 2.4 x 2.0 x 0.2 cm. The specimen is wrapped in paper and submitted in toto in one cassette, multiple pieces, multiple levels. Please note: Small tissue fragments may not survive processing. dvb/DG 03/19/2024 12:27 PM [facility] Disclaimer Unless otherwise specified, all tissue is 10% NB formalin fixed and paraffin embedded. 03/19/2024 12:27 PM EST [facility] Tissue Transverse colon structure / Unknown 03/18/2024 9:48 AM EST 03/18/2024 11:42 AM EST Tissue specimen (specimen) Transverse colon structure / Unknown 03/18/2024 10:05 AM EST 03/18/2024 11:42 AM EST Jessica Bethea MD LAB PATHOLOGY ORDERABLES Fi nal Result Performing Organization Address [facility]/ZIP Co de Phone Number [facility] [address] [place] [address], [place] [phone] * (ABNORMAL) Creatinine (01/17/2024 2:04 PM EST) Creatinine 2.08(H) 0.70 - 1.30 mg/dL LAB CHEMISTRY METHOD 01/17/2024 3:12 PM EST [facility] eGFR 33(L) >=60 mL/min/1. 73m2 LAB CHEMISTRY METHOD 01/17/2024 3:12 PM EST [facility] Comment:Calculation based on the??Chronic Kidney Disease Epidemiology Collaboration (CKD-EPI) equation refit??without adjustment for race. Blood Venous blood specimen / Unknown Venipuncture / Unknown 01/17/2024 2:04 PM EST 01/17/2024 2:36 PM EST Manuel Bowers MD LAB BLOOD ORDERABLES Final Resul t Performing Organization Address [facility]/ZIP Co de Phone Number [facility] [address] [place] [address], [place] [phone] * (ABNORMAL) Lipid panel (09/03/2023) LDL/HDL Ratio 4 0 - 4 Triglycerides 164(A) 0 - 150 mg/dL Cholesterol 160 0 - 200 mg/dL HDL 38(A) >=40 mg/dL LDL Cholesterol 90 0 - 100 mg/dL Blood Venous blood specimen / Unknown Result [facility] Historical Provider LAB BLOOD ORDERABLES Karis l Result * Hemoglobin A1c (01/24/2023) Hemoglobin A1C 5.9 <=6.5 % Blood Venous blood specimen / Unknown Result [facility] Provider LAB BLOOD ORDERABLES Karis l Result * US ABDOMINAL AORTA REAL TIME SCREEN STUDY AAA (10/23/2018 11:00 AM EDT) Anatomical Region Laterality Modality Ultrasound 10/03/2018 11:3 6 AM EDT Narrative 10/23/2018 3:22 PM EDT Ultrasound of the abdominal aorta. History rule out AAA. ??Former smoker. Proximal aorta measures 3 cm AP, mid aorta measures 2.5 cm AP, distal aorta measures 1.6 cm AP. ??Proximal right common iliac artery measures 1.6 cm, proximal left common iliac artery measures 1.3 cm. ??Incidental findings of small fat-containing umbilical hernia. CONCLUSIONS: No evidence of AAA. ??Incidental findings of small fat-containing umbilical hernia. Procedure Note Maria Guadalupe Mccormick MD - 01/31/2022 Ultrasound of the abdominal aorta. History rule out AAA. Former smoker. Proximal aorta measures 3 cm AP, mid aorta measures 2.5 cm AP, distalaorta measures 1.6 cm AP. Proximal right common iliac artery measures 1.6 cm, proximal left commoniliac artery measures 1.3 cm. Incidental findings of small fat-containing umbilicalhernia. CONCLUSIONS: No evidence of AAA. Incidental findings of smallfat-containing umbilical hernia. Result [facility] Diana BEDOYA US PROCEDURES Final Result * Hepatitis C Screening (10/03/2018) Pathologist [facility] Hepatitis C Screening Abstracted Result [facility] Provider HEALTH MAINTENANCE Final Result * Urine Albumin Creatinine Ratio (07/12/2018) Pathologist [facility] Urine Albumin Creatinine Ratio Abstracted Historical Provider HEALTH MAINTENANCE Final Result from Last 3 Months or Most Recently Relevant to Health Maintenance Insurance [employer] MEDICARE Member Subscriber Plan / Payer (Ef fective 2019-Present) Name:[place] Gian Hector Relation to Subscriber:Self Name:Gian Garcia Hector Payer ID:[id number] Group ID:[id number] Type:Not on file Address: [place] [address] [place] [id number] Advance Directives Documents on File Type Date Recorded Patient Lump Maker Expl anation Health Care Decision (hx) 12/02/2008 AD PURDY DIRECTIVE Health Care Decision (hx) 12/02/2008 AD PURDY DIRECTIVE Health Care Decision (hx) 12/02/2008 AD PURDY DIRECTIVE Health Care Decision (hx) 12/02/2008 AD PURDY DIRECTIVE 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
== END 2024-04-24 11:11 | disposition home or self-care (01) ==
LOC: HO.HKAS 10:27
PROVIDERS: PCP Internal Medicine; Visit Provider Internal Medicine Nephrology
DX: N18.32 Chronic kidney disease, stage 3b (principal); I10 Essential (primary) hypertension
CPT/HCPCS: 99214

== ENCOUNTER → 2024-04-24 10:26 | Outpatient (BNVA) | payer MEDICARE, SELFPAY | PROVIDERS: PCP Internal Medicine; Visit Provider Internal Medicine Nephrology | DX: I12.9 Hypertensive chronic kidney disease with stage 1 through stage 4 chronic kidney disease, or unspecified chronic kidney disease (principal); N18.32 Chronic kidney disease, stage 3b; G47.33 Obstructive sleep apnea (adult) (pediatric); F17.210 Nicotine dependence, cigarettes, uncomplicated; Z99.89 Dependence on other enabling machines and devices | CPT/HCPCS: 99212 ==

== ENCOUNTER 2024-08-18 15:18 | Outpatient (REF) | payer OTHER, SELFPAY ==
--- OUTSIDE RECORDS SUMMARY | 2024-08-18 15:37 | XMS_ITS | Clinical Summary ---
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 Name Role Phone Luis Eduardo Hendrickson MD Primary Care Provider [phone] Allergies Active Allergy Reactions Criticality Noted Date [...] 09/20/2020 09/21/19 Seizure disorder 09/20/2020 09/20/2020 Immunizations Immunization Administration Dates Next Due DTaP 10/03/2018 Influenza [...] Colorectal Cancer Screening: Sigmoidoscopy 2001 Pneumococcal Vaccine: 50+ Years (2 of 2 - PPSV23, PCV20, or PCV21) 01/10/2018 10/03/2022, 11/15/2017 Diabetes: Hemoglobin A1C 11/14/2022 022, 07/12/2018 Diabetes: Ophthalmology Exam 11/14/2022 Diabetes: Pedal Pulse Checked 11/14/2022 Diabetes: Sensory Foot Exam 11/14/2022 Diabetes: Visual Foot Exam 11/14/2022 Influenza Vaccine (#1) 2024 10/25/2019 Pneumococcal Vaccine: Peds ( 0 to 5 Years) and At-Risk Patients (6 to 49 Years) Discontinued 10/03/2022, 11/15/2017 Hepatitis B Vaccine Aged Out No longe r eligible based on patient's age to complete this topic Procedures Procedure Name Priority Date/Time Associated Diagnosis Comments HEMOGLOBIN A1C Routine 09/27/2021 3:47 PM EDT from Last 3 Months or Most Recently Relevant to Health Maintenance Results * (ABNORMAL) Hemoglobin A1c (09/27/2021 3:47 PM EDT) Hemoglobin A1C 6.3(H) (4.0-5.6) % [facility] Comment: MONITORING: In known diabetic patients, hemoglobin A1c targets should be discussed with health care provider. DIAGNOSTIC USE: The [place] Diabetes Association (ADA) and the World Health [...] Supplement 1 Testing performed or reported by [facility], a Service of [facility], [address] [place] [address] Sami Patel MD, Investment Banking Associate [facility]# [id number] 09/27/2021 3:47 PM EDT 09/27/2021 3:49 PM EDT Noman Castillo MD LAB BLOOD ORDERABLES Final Re sult [facility] from Last 3 Months or Most Recently Relevant to Health Maintenance Insurance ([id number]) [place] [phone] ([id number]) [place] [phone] Care Teams Suction Drum Drier Operator Relationship Specialty Start Date End Date Luis Eduardo Hendrickson MD [address] [place] [id number] PCP - General 02/23/20
--- OUTSIDE RECORDS SUMMARY | 2024-08-18 15:37 | XMS_ITS | Clinical Summary ---
Author Organization [facility] Address [address] [place] [address] Care Team Providers Care It Service Technician Name Role Phone Luis Eduardo Hendrickson MD [...] 72 10/02/2023 3:27 PM EDT Temperature 37.1 C (98.8 F) 10/02/2023 3:27 PM EDT Respiratory Rate - - Oxygen Saturation 95% [...] 2002 Fall Risk Assessment 2017 COVID-19 Vaccine ( season) 2023 11/29/2020 Influenza Vaccine (#1) 2024 2, 10/12/2020, 10/25/2019, Additional history exists RSV [...] age to complete this topic Care Teams It Service Technician Relationship Specialty Start Date End Date Luis Eduardo Hendrickson MD PCP - General Internal Medicine 12/29/21
--- OUTSIDE RECORDS SUMMARY | 2024-08-18 15:37 | XMS_ITS | Clinical Summary ---
Author Organization [facility] Address [address] [place] [address] Phone Care Team Providers Care Convention Services Director Name Role Phone Luis Eduardo Hendrickson MD Primary Care Provider [phone] Allergies Active Allergy Reactions Criticality Noted Date Comments Lisinopril Cough 10/05/2016 Phenytoin 09/20/2020 Medications blood-glucose meter kit 1 Units by Not Applicable route 2 (two) times a day. DX E11.49 0 Active blood pressure test kit-large kit 1 Units by Not Applicable route 1 (one) time each day. DX hypertension 0 Active DISPOSABLE GLOVES MISC Pt uses 5 pair of gloves a day Dx N39.498 , N32.81 Lifetime Need 9 Active blood sugar diagnostic (FreeStyle Lite Strips) test strip 2 (two) times a day. USE DIRECTED 3 Active ammonium lactate (AMLACTIN) 12 % cream Apply topically 1 (one) time each day. APPLY TO BOTTOM OF FEET DAILY AND COVER WITH SOCKS 9 Active bisacodyL (Dulcolax, bisacodyl,) 5 mg EC tablet Take 4 tabs 1-2 hours prior to taking the bowel prep 9 Active carvediloL (COREG) 25 mg tablet Take 1 tablet (25 mg total) by mouth 2 (two) times a day. FOR 30 DAYS 4 Active cholecalciferol (VITAMIN D-3) 50 mcg (2,000 unit) capsule Take 1 capsule (2,000 Units total) by mouth 1 (one) time each day. FOR 30 DAYS 4 Active hydrALAZINE (APRESOLINE) 50 mg tablet Take 1 tablet (50 mg total) by mouth 3 (three) times a day. 1 Active lactulose (Generlac) solution Take 15 mL (10 g total) by mouth 1 (one) time each day. 9 Active NIFEdipine CC (ADALAT CC) 90 mg 24 hr tablet Take 1 tablet (90 mg total) by mouth 1 (one) time each day. 8 Active terazosin (HYTRIN) 2 mg capsule Take 1 capsule (2 mg total) by mouth at bedtime. Active risperiDONE (RisperDAL) 1 mg tablet TAKE 1 TABLET BY MOUTH TWICE A DAY 180 tablet 1 4 Active albuterol HFA (PROAIR HFA ; PROVENTIL HFA ; VENTOLIN HFA) 90 mcg/actuation inhaler INHACE 2 PUFFS BY MOUTH EVERY 6 HOURS NEEDED FOR COUGH/WHEEZING OR SHORTNESS OF BREATH. 8.5 each 11 4 Active oxyBUTYnin XL (DITROPAN-XL) 10 mg 24 hr tablet TAKE 1 TABLET BY MOUTH EVERY DAY 90 tablet 1 4 Active polyethylene glycol (Golytely) 236-22.74-6.74 -5.86 gram solution Take 4L by mouth once for one dose. May substitue any PEG. Starting at 6PM the night before your procedure drink 1 8oz glasses at your own pace until you complete half of the gallon. Finish 2nd half of the gallon 5 hours before your procedure. 4000 mL 5 Active bisacodyL (DULCOLAX) 5 mg EC tablet Take 2 tablets by mouth right before beginning bowel prep. See instructions provided by the office 2 tablet 5 Active aspirin 81 mg EC tablet Take 1 tablet (81 mg total) by mouth 1 (one) time each day. Active apixaban (Eliquis) 5 mg tablet Take 1 tablet (5 mg total) by mouth 2 (two) times a day. 60 tablet 5 5 Active gabapentin (NEURONTIN) 300 mg capsule Take 1 capsule (300 mg total) by mouth 2 (two) times a day. 180 capsule 1 5 Active losartan (COZAAR) 100 mg tablet Take 1 tablet (100 mg total) by mouth 1 (one) time each day. 90 each 1 5 10/05/19 25 Active isosorbide mononitrate (IMDUR) 30 mg 24 hr tablet TAKE 2 TABLETS (60 MG TOTAL) BY MOUTH 2 (TWO) TIMES A DAY. FOR 30 DAYS 180 tablet 1 5 Active Active Problems Problem Noted Date Diagnosed Date Total incontinence 11/15/2017 Paroxysmal atrial fibrillation ([facility] V24, [facility] V28) 06/28/2017 Constipation 02/20/2017 Autonomic neuropathy 08/02/2016 Chronic cholecystitis 08/02/2016 Chronic [place] C [place] [facility] V28) 0 08/02/2016 Diabetes mellitus type 2 wit h neurological manifestations ([facility] V24, [facility] V28) 08/02/2016 DM (diabetes mellitus), type 2 with renal complications ([facility] V24, [facility] V28) 08/02/2016 Hypertension 08/02/2016 Hypokalemia 08/02/2016 Hypomagnesemia 08/02/2016 Memory impairment 08/02/2016 Microalbuminuria 08/02/2016 Onychomycosis 08/02/2016 Overactive bladder 08/02/2016 Seizure disorder ([facility] V24, [facility] V28) 07/14 TBI (traumatic brain injury) ([facility] V24, [facility]/ [facility] V28) 08/02/2016 Ventral hernia 08/02/2016 CKD (chronic kidney disease) stage 3, GFR 30-59 ml/min ([facility] V24, [facility] V28) 07/24/2013 Overview (12/28/2023): Dr Farrell Internal hemorrhoids 08/29/2011 Encounters Date Type Department Care Team Description 07/17/2024 Telephone Internal Medicine - [place] [facility] [address] [place] [address] Dinah Ramirez MA faxed order (L&C) 06/13/2024 12:41 PM EDT - 06/13/2024 11:59 PM EDT Hospital Encounter [facility] CT Scan [address] [place] [address] Encounter for screening for malignant neoplasm of respiratory organs; Nicotine dependence, cigarettes, uncomplicated Discharge Disposition: Home or Self Care 05/28/2024 Telephone Lung Screening Program - [place] [address] [facility] [address] [place] [address] Zita Vu [place] Appointment (1st notification) from Last 3 Months Immunizations Name Administration [...] History Medical History Date Comments Diabetes mellitus ([facility]/HCC V 24, [facility]/HCC V28) DX:Diabetes mellitus (HCC) Hypertension DX:Hypertension Diabetes mellitus type 2 wit h neurological manifestations (CMS/HCC V24, CMS/HCC V28) 08/02/2016 DX:Diabetes mellitus type 2 with neurological manifestations (HCC) Onychomycosis 08/02/2016 DX:Onychomycosis Chronic cholecystitis 08/02/2016 DX:Chronic cholecystitis Chronic hepatitis C (CMS/HCC V24, CMS/HCC V28) 08/02/2016 DX:Chronic hepatitis C (HCC) Microalbuminuria 08/02/2016 DX:Microalbumin uria Hypertension 08/02/2016 DX:Hypertension Hypokalemia 08/02/2016 DX:Hypokalemia Overactive bladder 08/02/2016 DX:Overactive bladder DM (diabetes mellitus), type 2 with renal complications (CMS/HCC V24, CMS/HCC V28) 08/02/2016 DX:DM (diabetes mellitus), t ype 2 with renal complications (HCC) Seizure disorder (CMS/HCC V2 4, CMS/HCC V28) 08/02/2016 DX:Seizure disorder ([facility]) Autonomic neuropathy 08/02/2016 DX:Autonomi c neuropathy CKD (chronic kidney disease) stage 3, GFR 30-59 ml/min ([facility] V24, [facility] V28) 07/24/2013 DX:CKD (chronic kidney disea se) stage 3, GFR 30-59 ml/min ([facility]) TBI (traumatic brain injury) ([facility] V24, [facility] V28) 08/02/2016 DX:TBI (traumatic brain inju ry) ([facility]) Ventral hernia 08/02/2016 DX:Ventral herni a Memory impairment 08/02/2016 DX:Memory impa irment Hypomagnesemia 08/02/2016 DX:Hypomagnesemi a Anticoagulated on Coumadin 11/21/2016 DX:An ticoagulated on Coumadin Constipation 02/20/2017 DX:Constipation History of respiratory failure 10/10/2016 D X:History of respiratory failure Internal hemorrhoids 08/29/2011 DX:Internal hemorrhoids Paroxysmal atrial fibrillati on [place] [place], [facility] V28) 06/28/2017 DX:Paroxysmal atrial fibril lation ([facility]) Total incontinence 11/15/2017 DX:Total inco ntinence Family [...] 56 04/07/2024 2:53 PM EST Temperature 36.8 C (98.3 F) 04/07/2024 2:53 PM EST Respiratory Rate 21 03/18/2024 10:36 AM EST [...] PM EDT Office Visit Internal Medicine - [place] [address] [facility] [address] [place] [id number] Luis Eduardo Hendrickson MD [address] [facility] [address] [place] [address] Health Maintenance Due Date Last Done Comments Diabetes: Annual Foot Exam 1962 Diabetes: Annual Retina Eye Exam 1960 Hepatitis A Vaccines (1 of 2 - Risk 2-dose series) 08/17/1971 Zoster Vaccines (1 of 2) 08/17/1971 Hepatitis B Vaccines (1 of 3 - Risk 3-dose series) 2012 RSV Immunization Adult Patients (1 - Risk 60-74 years 1-dose series) 2012 Depression Screening 01/21/2022 Osteoporosis Screening (Bone Density Screening) 01/21/2022 Social Influencers of Health Screening 01/21/2022 Diabetes: Annual Urine Albumin-Creatinine Ratio (uACR) 01/22/2022 07/12/2018 Diabetes: Blood Sugar Control Test (HGBA1C) 07/26/2023 01/24/2023, 09/27/2021 Medicare Annual Wellness Visit 10/04/2023 10/03/2022 COVID-19 Vaccine ( season) 2023 11/05/2023, 06/26/2022, 11/05/2021, Additional history exists Influenza Vaccine (#1) 2024 , 11/21/2021, 10/12/2020, Additional history exists Diabetes: Annual GFR (Glomerular [...] Vaccine: 50+ Years Completed 10/03/2022, 11/15/2017, 04/11/2016 HIB Vaccines Aged Out No longer eligi [...] age to complete this topic Meningococcal B Vaccine Aged Out No l onger eligible based on patient's age to complete this topic RSV Immunization Patients Under 20 months Aged Out No longer eligible based on patient's age to complete this topic Varicella Vaccines Aged Out No longer eligible based on patient's age to complete this topic Procedures Procedure Name Priority Date/Time Associated Diagnosis Comments CT LUNG SCREENING Routine 06/13/2024 1:1 5 PM EDT Encounter for screening for malignant neoplasm of respiratory organs Nicotine dependence, cigarettes, uncomplicated COLONOSCOPY Routine 03/18/2024 10:15 AM EST History of colon polyps CREATININE, SERUM Routine 01/17/2024 2:0 4 PM EST Chronic kidney disease (CKD) stage G3b/A1, moderately decreased glomerular filtration rate (GFR) between 30-44 mL/min/1.73 square meter and albuminuria creatinine ratio les* (CMS/HCC V24, CMS/HCC V28) Essential hypertension, benign LIPID PANEL Routine 09/03/2023 HEMOGLOBIN A1C Routine 01/24/2023 US ABDOMINAL AORTA REAL TIME SCREEN STUDY AAA Routine 10/23/2018 11:00 AM EDT Personal history of nicotine dependence HM HEPATITIS C SCREENING Routine 10/03/2018 HM URINE ALBUMIN CREATININE RATIO Routine 07/12/2018 from Last 3 Months or Most Recently Relevant to Health Maintenance Results * CT Lung Screening (06/13/2024 1:15 PM EDT) Anatomical Region Laterality Modality Chest Computed Tomogra phy 06/16/2024 1:25 PM EDT Impressions 06/16/2024 1:35 PM EDT Impression: No suspicious developing pulmonary nodule. No significant change. Lung-RADS Category: Lung-RADS 1: No nodules or definitely benign nodules. Continue annual screening with Low Dose Chest CT in 12 months. [place] ([id number]) -------- FINAL REPORT -------- Dictated By: Karla Montague Dictated Date: 06/16/2024 13:25 ET Assigned Physician: Karla Montague Reviewed and Electronically Signed By: Karla Montague Signed Date: 06/16/2024 13:35 ET Workstation ID: [id number] Transcribed By: Self Edit Transcribed Date: 06/16/2024 13:25 ET Narrative 06/16/2024 1:35 PM EDT History: 73 year-old 29 pack-year current smoker, asymptomatic, for lung cancer screening. Comparison: 06/13/23 Technique: Helical volumetric imaging of the thorax was performed, using low- dose technique, without IV contrast. DLP: 160.73 mGy/cm CTDIvol: 4.83 mGy [place] VCT Iterative reconstruction technique Findings: Lungs and Airways: The trachea and central bronchial tree remains patent. Centrilobular emphysema is again noted. Thin bandlike opacities are present in the lingula and both lower lobes, without significant change, compatible with subsegmental atelectasis or scar. Subpleural reticulation is seen in the posteromedial right lower lobe, overlying an area of large spinal osteophytes, consistent with fibrosis, unchanged. No suspicious developing pulmonary nodule is seen. Pleura: No pleural or pericardial effusions are seen. Base of neck, mediastinum and heart: The heart remains normal in size. Severe three-vessel coronary artery calcification is again noted. Apparent displaced intimal calcifications are seen in the descending thoracic aorta, unchanged from the previous study, suggestive of chronic dissection. No developing thoracic lymphadenopathy is seen. Soft tissues: The overlying soft tissues are unremarkable. Abdomen: This study was performed without contrast and with lower than standard dose. These factors reduce the sensitivity for detection of small lesions in the upper abdomen. The hepatic attenuation is heterogeneous, suggesting geographic fatty infiltration (partially imaged). Procedure Note Karla Montague MD - 06/16/2024 History: 73 year-old 29 pack-year current smoker, asymptomatic, for lungcancer screening. Comparison: 06/13/23 Technique: Helical volumetric imaging of the thorax was performed, usinglow-dose technique, without IV contrast. DLP: 160.73 mGy/cm CTDIvol: 4.83 mGy [place] VCT Iterative reconstruction technique Findings: Lungs and Airways: The trachea and central bronchial tree remains patent.Centrilobular emphysema is again noted. Thin bandlike opacities arepresent in the lingula and both lower lobes, without significant change,compatible with subsegmental atelectasis or scar. Subpleural reticulationis seen in the posteromedial right lower lobe, overlying an area of largespinal osteophytes, consistent with fibrosis, unchanged. No suspicious developing pulmonary nodule is seen. Pleura: No pleural or pericardial effusions are seen. Base of neck, mediastinum and heart: The heart remains normal in size.Severe three-vessel coronary artery calcification is again noted. Apparentdisplaced intimal calcifications are seen in the descending thoracicaorta, unchanged from the previous study, suggestive of chronicdissection. No developing thoracic lymphadenopathy is seen. Soft tissues: The overlying soft tissues are unremarkable. Abdomen: This study was performed without contrast and with lower thanstandard dose. These factors reduce the sensitivity for detection of smalllesions in the upper abdomen. The hepatic attenuation is heterogeneous,suggesting geographic fatty infiltration (partially imaged). IMPRESSION: Impression: No suspicious developing pulmonary nodule. No significant change. Lung-RADS Category: Lung-RADS 1: No nodules or definitely benign nodules.Continue annual screening with Low Dose Chest CT in 12 months. Telerad [place] ([id number]) -------- FINAL REPORT -------- Dictated By: Karla Montague Dictated Date: 06/16/2024 13:25 ET Assigned Physician: Karla Montague Reviewed and Electronically Signed By: Karla Montague Signed Date: 06/16/2024 13:35 ET Workstation ID: [id number] Transcribed By: Self Edit Transcribed Date: 06/16/2024 13:25 ET Brittany Sheldon MD IM CT PROCEDURES Final Result * COLONOSCOPY Anesthesia - MAC; [facility] ENDOSCOPY (03/18/2024 10:15 AM EST) Anatomical Region Laterality Modality Endoscopy 03/18/2024 9:40 AM EST Impressions 03/18/2024 10:21 AM EST - 14 1 to 3 mm polyps in the transverse colon, removed with a cold snare. Resected and retrieved. - One 15 mm polyp in the mid transverse colon, removed using injection-lift and a cold snare. Resected and retrieved. Clips (MR conditional) were placed. 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 - The examination was otherwise normal on direct and retroflexion views. Recommendation: - Discharge patient to home. - Await pathology results. - Repeat colonoscopy in 1 year for surveillance. Narrative 03/18/2024 10:21 AM EST [facility] GI Patient Name: Gian Garcia Procedure Date: 03/18/2024 9:40 AM Date of : 1950 Age: 73 Gender: Male Note Status: Finalized Attending MD: Jessica Bethea MD, Procedure Date No Time: 03/18/2024 Procedure: Colonoscopy Indications: High risk colon cancer surveillance: Personal history of colonic polyps Providers: Jessica Bethea MD Referring MD: Jessica Bethea MD Medicines: Monitored Anesthesia Care Complications: No immediate complications. Estimated blood loss: Minimal. Estimated Blood Loss: Estimated blood loss was minimal. Procedure: Pre-Anesthesia Assessment: - Prior to the procedure, a History and Physical was performed, and patient medications and allergies were reviewed. The patient is competent. The risks and benefits of the procedure and the sedation options and risks were discussed with the patient. All questions were answered and informed consent was obtained. Patient identification and proposed procedure were verified by the physician, the nurse, the technical laboratory asst and the dye lab technician in the pre-procedure area in the endoscopy suite. Mental Status Examination: alert and oriented. Airway Examination: normal oropharyngeal airway and neck mobility. Respiratory Examination: clear to auscultation. CV Examination: normal. Prophylactic Antibiotics: The patient does not require prophylactic antibiotics. Prior Anticoagulants: The patient has taken no anticoagulant or antiplatelet agents. ASA Grade Assessment: III - A patient with severe systemic disease. After reviewing the risks and benefits, the patient was deemed in satisfactory condition to undergo the procedure. The anesthesia plan was to use monitored anesthesia care (MAC). Immediately prior to administration of medications, the patient was re-assessed for adequacy to receive sedatives. The heart rate, respiratory rate, oxygen saturations, blood pressure, adequacy of pulmonary ventilation, and response to care were monitored throughout the procedure. The physical status of the patient was re-assessed after the procedure. After I obtained informed consent, the scope was passed under direct vision. Throughout the procedure, the patient's blood pressure, pulse, and oxygen saturations were monitored continuously. The Olympus Colonoscope was introduced through the anus and advanced to the cecum, identified by appendiceal orifice and ileocecal valve. The colonoscopy was performed without difficulty. The patient tolerated the procedure well. The quality of the bowel preparation was good. Findings: The perianal and digital rectal examinations were normal. 14 sessile polyps were found in the transverse colon. The polyps were 1 to 3 mm in size. These polyps were removed with a cold snare. Resection and retrieval were complete. Estimated blood loss was minimal. A 15 mm polyp was found in the mid transverse colon. The polyp was flat and umbilicated. The polyp was removed with a saline injection-lift technique using a cold snare. Resection and retrieval were complete. To prevent bleeding after the polypectomy, three hemostatic clips were successfully placed (MR conditional). 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 There was no bleeding at the end of the procedure. Estimated blood loss was minimal. The exam was otherwise without abnormality on direct and retroflexion views. Procedure Code(s): --- Professional --- 75685, Colonoscopy, flexible; with removal of tumor(s), polyp(s), or other lesion(s) by snare technique 32075, Colonoscopy, flexible; with directed submucosal injection(s), any substance Diagnosis Code(s): --- Professional --- D12.3, Benign neoplasm of transverse colon (hepatic flexure or splenic flexure) CPT copyright 2020 [employer]. All rights reserved. The codes documented in this report are preliminary and upon technician telecommunication systems review may be revised to meet current compliance requirements. Jessica Bethea MD 03/18/2024 10:21:55 AM This report has been signed electronically.Jessica Bethea MD Number of Addenda: 0 Note Initiated On: 03/18/2024 9:40 AM Scope Withdrawal Time: 0 hours 28 minutes 19 seconds Scope In: 9:46:14 AM Scope Out: 10:17:44 AM Endoscopy Department at [facility] - [address] [place] [id number] Procedure Note Jessica eBthea MD - 03/18/2024 [facility] GI Patient Name: Gian Garcia [...] the physician, the nurse, theanesthetist and the dye lab technician in the pre-procedure area in the [...] clips were successfully placed (MR conditional). 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 There was no bleeding at the end of the procedure. Estimated blood loss was minimal. The exam was otherwise without abnormality ondirect and retroflexion views. Procedure Code(s): --- Professional --- 35933, Colonoscopy, flexible; with removal of tumor(s), polyp(s), or other lesion(s) by snare technique 72288, Colonoscopy, flexible; with directedsubmucosal injection(s), any substance Diagnosis Code(s): --- Professional --- D12.3, Benign neoplasm of transverse colon (hepatic flexure or splenic flexure) CPT copyright 2020 [employer]. All rights reserved. The codes documented in this report are preliminary and upon technician telecommunication systems reviewmay be revised to meet current compliance requirements. Jessica Bethea MD 03/18/2024 10:21:55 AM This report has been signed electronically.Jessica Bethea MD Number of Addenda: 0 Note Initiated On: 03/18/2024 9:40 AM Scope Withdrawal Time: 0 hours 28 minutes 19 seconds Scope In: 9:46:14 AM Scope Out: 10:17:44 AM Endoscopy Department at [address] [id number] IMPRESSION: - 14 1 to 3 mm polyps in the transverse colon, removed with a cold snare. Resected and retrieved. - One 15 mm polyp in the mid transverse colon,removed using injection-lift and a cold snare. Resected and retrieved. Clips (MR conditional) were placed. 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 - The examination was otherwise normal on directand retroflexion views. Recommendation: - Discharge patient to home. - Await pathology results. - Repeat colonoscopy in 1 year for surveillance. Jessica Bethea MD GI~PROCEDURE ORDERABLES Fin al Result * (ABNORMAL) Creatinine (01/17/2024 2:04 PM EST) Creatinine 2.08(H) 0.70 - 1.30 mg/dL LAB CHEMISTRY METHOD 01/17/2024 3:[address] [facility] eGFR 33(L) >=60 mL/min/1. 73m2 LAB CHEMISTRY METHOD 01/17/2024 3:[address] [facility] Comment:Calculation based on the Chronic Kidney Disease Epidemiology Collaboration (CKD-EPI) equation refit without adjustment for race. Blood Venous blood specimen / Unknown Venipuncture / Unknown 01/17/2024 2:04 PM EST 01/17/2024 2:36 PM EST Manuel Bowers MD LAB BLOOD ORDERABLES Final Resul t [facility] [address] [place] [address], * (ABNORMAL) Lipid panel (09/03/2023) LDL/HDL Ratio 4 0 - 4 Triglycerides 164(A) 0 - 150 mg/dL Cholesterol 160 0 - 200 mg/dL HDL 38(A) >=40 mg/dL LDL Cholesterol 90 0 - 100 mg/dL Blood Venous blood specimen / Unknown Historical Provider LAB BLOOD ORDERABLES Karis l Result * Hemoglobin A1c (01/24/2023) Hemoglobin A1C 5.9 <=6.5 % Blood Venous blood specimen / Unknown Historical Provider LAB BLOOD ORDERABLES Karis l [...] AP, distal aorta measures 1.6 cm AP. Proximal right common iliac artery measures 1.6 cm, proximal left common iliac artery measures 1.3 cm. Incidental findings of small fat-containing umbilical hernia. CONCLUSIONS: No evidence of AAA. Incidental findings of small fat-containing umbilical hernia. Procedure [...] AAA. Incidental findings of smallfat-containing umbilical hernia. Diana TAMAYO IMSrini US PROCEDURES Final Result * Hepatitis C Screening (10/03/2018) Hepatitis C Screening Abstracted Historical Provider HEALTH MAINTENANCE Final Result * Urine Albumin Creatinine Ratio (07/12/2018) Urine Albumin Creatinine Ratio Abstracted Historical Provider HEALTH MAINTENANCE Final Result from Last 3 Months or Most Recently Relevant to Health Maintenance Insurance [employer] MED[employer] Member Subscriber Plan / Payer (Ef fective 2019-Present) Name:Gian Garcia Relation to Subscriber:Self Name:Gian Garcia Payer ID:[id number] Group ID:[id number] Type:Not on file Address: [place] [address] [place] [id number] Advance Directives Documents on File Type Date Recorded 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
[2024-08-18 18:01] LABS: Anion Gap 15 (12-20); Blood Urea Nitrogen 19 mg/dL (9-16); Carbon Dioxide 24 mmol/L (22-29); Chloride 105 mmol/L (96-108); Estimated Glomerular Filt Rate 34; Potassium 5.0 mmol/L (3.3-5.1); Sodium 139 mmol/L (135-145)
== END 2024-08-18 15:19 | disposition home or self-care (01) ==
LOC: HO.HKASLDS 15:18
PROVIDERS: Visit Provider Internal Medicine Nephrology
DX: I12.9 Hypertensive chronic kidney disease with stage 1 through stage 4 chronic kidney disease, or unspecified chronic kidney disease (principal); N18.32 Chronic kidney disease, stage 3b
CPT/HCPCS: 36415; 80051; 82565; 84520

== ENCOUNTER 2024-08-21 10:35 | Outpatient (AMB) | payer MEDICARE, SELFPAY ==
[2024-08-21 10:48] VITALS: BP 120/60; PULSE 65; O2SAT 85; BMI 36.7
--- NOTE | 2024-08-21 10:48 | HO.NEPHOV ---
Vital Signs 08/21/24 10:48 Height 5 ft 10 in Weight 256 lb BMI 36.7 BP 120/60 Blood Pressure Location Lt brachial Position Sitting Pulse 65 Pulse Source Pulse Oximeter Pulse Oximetry (%) 85 L Oxygen Delivery Method Room Air Intake Visit Reasons: 4mon follow-up w/labs-Conf It Disaster Recovery Manager Required: No Accompanied by: Sister Allergies lisinopril Allergy (Verified 08/21/24 10:50) Unknown phenytoin Allergy (Verified 08/21/24 10:50) Unknown HPI Comments Details: Gian was seen in follow-up of his chronic kidney disease and hypertension. His blood pressure is well controlled . 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 His BP has been at goal. He is smoking .He has obstructive sleep apnea and claims to be compliant with the CPAP. His urine output is good. He denies shortness of breath, proximal nocturnal dyspnea or orthopnea. He does not have any orthostatics symptoms, headache or weakness. He is not taking any nonsteroidal anti-inflammatory medications. He is not very strict with this salt intake. His serum creatinine had been stable [facility] Medical History (Updated 12/20/22 @ 16:14 by Manuel Bowers MD) Proteinuria Diabetes Chronic kidney disease, stage 3b Surgical History H/O brain surgery Family History Mother Hypertension Father Hypertension Stroke Sister Hypertension Social History Alcohol intake: never Patient Tobacco Use Status: Never used Tobacco Review of Systems Const All systems reviewed & are unremarkable except as noted in HPI and below Physical Exam Vital Signs: BMI result Body Mass Index 36.7 Const General: comfortable and no acute distress Orientation/consciousness: patient oriented x3 HEENT Head: Yes normocephalic Mouth: Normal oral and palatal mucosa present Eyes EOM: EOMs intact bilaterally Neck Neck: Yes supple Resp Auscultation: clear to auscultation bilaterally Cardio Jugular venous distension: no JVD Rate: regular rate GI Palpation (GI): Soft to palpation Auscultation: normal bowel sounds General: Yes no CVA tenderness Back/Spine/Pelvis Back: no CVA tenderness Skin General skin exam: no rashes or lesions noted Neuro General: patient oriented x3 and moves all extremities Extrem General: Yes no pedal edema Results Reviewed Nephrology Results: Sodium, (135-145) 139 mmol/L 08/18/24 Potassium, (3.3-5.1) 5.0 mmol/L 08/18/24 Chloride, (96-108) 105 mmol/L 08/18/24 Carbon Dioxide, (22-29) 24 mmol/L 08/18/24 BUN, (9-16) 19 mg/dL H 08/18/24 Creatinine, (0.5-1.4) 1.95 mg/dL H 08/18/24 Assessment & Plan Assessment & Plan (1) Chronic kidney disease, stage 3b: Code(s): N18.32 - Chronic kidney disease, stage 3b Category: Medical (2) Hypertension: Code(s): I10 - Essential (primary) hypertension Category: Medical Qualifiers: Hypertension type: primary hypertension Qualified Code(s): I10 - Essential (primary) hypertension Plan Gian has a stage III B CKD. He has diabetes for some time. He has mild proteinuria. His hypertension is controlled. He had Type B aortic dissection including left renal artery. He should be on a low-sodium diet. HE could continue current medication regimen. All his questions were answered. No other prescriptions were refilled today. Follow-up appointment given Orders: Orders Calcium 4 Months I10 - Essential (primary) hypertension, N18.32 - Chronic kidney disease, stage 3b Blood Urea Nitrogen 4 Months I10 - Essential (primary) hypertension, N18.32 - Chronic kidney disease, stage 3b Electrolytes 4 Months I10 - Essential (primary) hypertension, N18.32 - Chronic kidney disease, stage 3b Creatinine 4 Months I10 - Essential (primary) hypertension, N18.32 - Chronic kidney disease, stage 3b Coding Level of Care Code Est Pt Level 4 (34314) Diagnoses Chronic kidney disease, stage 3b N18.32 Primary hypertension I10 Hypertension type: primary hypertension
--- OUTSIDE RECORDS SUMMARY | 2024-08-21 11:14 | XMS_ITS | Clinical Summary ---
Author Organization [facility] Address [address] [place] [address] Care Team Providers Care Processing Tech Name Role Phone Luis Eduardo Hendrickson MD [...] age to complete this topic Care Teams Processing Tech Relationship Specialty Start Date End Date Luis Eduardo Hendrickson MD PCP - General Internal Medicine 12/29/21
--- OUTSIDE RECORDS SUMMARY | 2024-08-21 11:14 | XMS_ITS | Clinical Summary ---
Author Organization [facility] Address [address] [place] [address] Phone Care Team Providers Care Frit Mixer Name Role Phone Luis Eduardo Hendrickson MD Primary Care Provider Allergies Active Allergy Reactions Criticality Noted Date [...] Date Total incontinence 11/15/2017 Paroxysmal atrial fibrillation ([facility] V24, [facility] V28) 06/28/2017 Constipation 02/20/2017 Autonomic neuropathy 08/02/2016 Chronic cholecystitis 08/02/2016 Chronic hepatitis C ([facility] V24, [facility] V28) 0 08/02/2016 Diabetes mellitus type 2 wit h neurological manifestations ([facility] V24, [facility] V28) 08/02/2016 DM (diabetes mellitus), type 2 with renal complications ([facility] V24, [facility] V28) 08/02/2016 Hypertension 08/02/2016 Hypokalemia 08/02/2016 Hypomagnesemia 08/02/2016 Memory impairment 08/02/2016 Microalbuminuria 08/02/2016 Onychomycosis 08/02/2016 Overactive bladder 08/02/2016 Seizure disorder ([facility] V24, [facility] V28) 07/14 TBI (traumatic brain injury) ([facility] V24, [facility]/ [facility] V28) 08/02/2016 Ventral hernia 08/02/2016 CKD (chronic kidney disease) stage 3, GFR 30-59 ml/min ([facility] V24, [facility] V28) 07/24/2013 Overview (12/28/2023): Dr Farrell Internal hemorrhoids 08/29/2011 Encounters Date Type Department Care Team Description 07/17/2024 Telephone Internal Medicine - [place] [address] [facility] [address] [place] [address] Dinah Ramirez MA faxed order (L&C) 06/13/2024 12:41 PM EDT - 06/13/2024 11:59 PM EDT Hospital Encounter [facility] CT Scan [address] [place] [address] Encounter for screening for malignant neoplasm of respiratory organs; Nicotine dependence, cigarettes, uncomplicated Discharge Disposition: Home or Self Care 05/28/2024 Telephone Lung Screening Program - [place] [address] [facility] [address] [place] [address] Zita Vu MA Appointment (1st [...] History Medical History Date Comments Diabetes mellitus ([facility]/HCC V 24, [facility]/HCC V28) DX:Diabetes mellitus (HCC) Hypertension DX:Hypertension Diabetes [...] V2 4, CMS/HCC V28) 08/02/2016 DX:Seizure disorder ([facility]) Autonomic neuropathy 08/02/2016 DX:Autonomi c neuropathy CKD (chronic kidney disease) stage 3, GFR 30-59 ml/min ([facility] V24, [facility] V28) 07/24/2013 DX:CKD (chronic kidney disea se) stage 3, GFR 30-59 ml/min ([facility]) TBI (traumatic brain injury) ([facility] V24, [facility] V28) 08/02/2016 DX:TBI (traumatic brain inju ry) ([facility]) Ventral hernia 08/02/2016 DX:Ventral herni a Memory impairment 08/02/2016 DX:Memory impa irment Hypomagnesemia 08/02/2016 DX:Hypomagnesemi a Anticoagulated on Coumadin 11/21/2016 DX:An ticoagulated on Coumadin Constipation 02/20/2017 DX:Constipation History of respiratory failure 10/10/2016 D X:History of respiratory failure Internal hemorrhoids 08/29/2011 DX:Internal hemorrhoids Paroxysmal atrial fibrillati on ([facility] V24, [facility] V28) 06/28/2017 DX:Paroxysmal atrial fibril lation ([facility]) Total incontinence 11/15/2017 DX:Total inco ntinence [...] PM EDT Office Visit Internal Medicine - [place] [address] [facility] [address] [place] [id number] Luis Eduardo Hendrickson MD [address] [facility] [address] [place] [address] Health Maintenance Due Date Last Done Comments [...] Chest CT in 12 [place] ([id number]) -------- FINAL REPORT -------- Dictated By: Karla Montague Dictated Date: 06/16/2024 13:25 ET Assigned Physician: Karla Montague Reviewed and Electronically Signed By: Karla Montague Signed Date: 06/16/2024 13:35 ET Workstation ID: [id number] Transcribed By: Self Edit Transcribed Date: 06/16/2024 13:25 ET Narrative 06/16/2024 1:35 PM EDT History: 73 year-old 29 pack-year current smoker, asymptomatic, for lung cancer screening. Comparison: 06/13/23 Technique: Helical volumetric imaging of the thorax was performed, using low- dose technique, without IV contrast. DLP: 160.73 mGy/cm CTDIvol: 4.83 mGy [place] VCT Iterative reconstruction technique Findings: Lungs and [...] contrast. DLP: 160.73 mGy/cm CTDIvol: 4.83 mGy [place] VCT Iterative reconstruction technique Findings: Lungs and [...] Chest CT in 12 months. [place] ([id number]) -------- FINAL REPORT -------- Dictated By: Karla Montague Dictated Date: 06/16/2024 13:25 ET Assigned Physician: Karla Montague Reviewed and Electronically Signed By: Karla Montague Signed Date: 06/16/2024 13:35 ET Workstation ID: [id number] Transcribed By: Self Edit Transcribed Date: 06/16/2024 13:25 ET Brittany Sheldon MD IM CT PROCEDURES Final Result * COLONOSCOPY Anesthesia - MAC; [facility] ENDOSCOPY (03/18/2024 10:15 AM EST) Anatomical Region [...] retrieved. Clips (MR conditional) were placed. Clip hospital laboratory technician: [place]. - The examination was otherwise normal on direct and retroflexion views. Recommendation: - Discharge patient to home. - Await pathology results. - Repeat colonoscopy in 1 year for surveillance. Narrative 03/18/2024 10:[address] [facility] GI Patient Name: Gian Garcia [...] verified by the physician, the nurse, the supervisor statement clerks and the behavioral technician in the pre-procedure area in the [...] clips were successfully placed (MR conditional). Clip hospital laboratory technician: [place]. There was no bleeding at the end of the procedure. Estimated blood loss was minimal. The exam was otherwise without abnormality on direct and retroflexion views. Procedure Code(s): --- Professional --- 71552, Colonoscopy, flexible; with removal of tumor(s), polyp(s), or other lesion(s) by snare technique 79089, Colonoscopy, flexible; with directed submucosal injection(s), any substance Diagnosis Code(s): --- Professional --- D12.3, Benign neoplasm of transverse colon (hepatic flexure or splenic flexure) CPT copyright 2020 [employer]. All rights reserved. The codes documented in this report are preliminary and upon sales developer review may be revised to meet current compliance requirements. Jessica Bethea MD 03/18/2024 10:21:55 AM This report has been signed electronically.Jessica Bethea MD Number of Addenda: 0 Note Initiated On: 03/18/2024 9:40 AM Scope Withdrawal Time: 0 hours 28 minutes 19 seconds Scope In: 9:46:14 AM Scope Out: 10:17:44 AM Endoscopy Department at [facility] - [address] [place] [id number] Procedure Note Jessica Bethea MD - 03/18/2024 [facility] GI Patient Name: Gian Garcia [...] the physician, the nurse, theanesthetist and the behavioral technician in the pre-procedure area in the [...] clips were successfully placed (MR conditional). Clip hospital laboratory technician: [place]. There was no bleeding at the end of the procedure. Estimated blood loss was minimal. The exam was otherwise without abnormality ondirect and retroflexion views. Procedure Code(s): --- Professional --- 74724, Colonoscopy, flexible; with removal of tumor(s), polyp(s), or other lesion(s) by snare technique 40945, Colonoscopy, flexible; with directedsubmucosal injection(s), any substance Diagnosis Code(s): --- Professional --- D12.3, Benign neoplasm of transverse colon (hepatic flexure or splenic flexure) CPT copyright 2020 [employer]. All rights reserved. The codes documented in this report are preliminary and upon sales developer reviewmay be revised to meet current compliance requirements. Jessica Bethea MD 03/18/2024 10:21:55 AM This report has been signed electronically.Jessica Bethea MD Number of Addenda: 0 Note Initiated On: 03/18/2024 9:40 AM Scope Withdrawal Time: 0 hours 28 minutes 19 seconds Scope In: 9:46:14 AM Scope Out: 10:17:44 AM Endoscopy Department at [address] [phone] IMPRESSION: - 14 1 to 3 mm polyps in the transverse colon, removed with a cold snare. Resected and retrieved. - One 15 mm polyp in the mid transverse colon,removed using injection-lift and a cold snare. Resected and retrieved. Clips (MR conditional) were placed. Clip hospital laboratory technician: [place]. - The examination was otherwise normal on directand retroflexion views. Recommendation: - Discharge patient to home. - Await pathology results. - Repeat colonoscopy in 1 year for surveillance. Jessica Bethea MD GI~PROCEDURE ORDERABLES Fin al Result * (ABNORMAL) Creatinine (01/17/2024 2:04 PM EST) Creatinine 2.08(H) 0.70 - 1.30 mg/dL LAB CHEMISTRY METHOD 01/17/2024 3:12 PM EST [facility] LAB eGFR 33(L) >=60 mL/min/1. 73m2 LAB CHEMISTRY METHOD 01/17/2024 3:12 PM EST [facility] Comment:Calculation based on the Chronic Kidney Disease Epidemiology Collaboration (CKD-EPI) equation refit without adjustment for race. Blood Venous blood specimen / Unknown Venipuncture / Unknown 01/17/2024 2:04 PM EST 01/17/2024 2:36 PM EST Manuel Bowers MD LAB BLOOD ORDERABLES Final [facility]ul t [facility] [address] [place] [address], * (ABNORMAL) Lipid panel (09/03/2023) LDL/HDL Ratio [...] ID:[id number] Group ID:[id number] Type:Not on file Address: [place] [address] [place] [phone] Advance Directives Documents on File Type Date Recorded Patient Asset Coordinator Expl anation Health Care Decision (hx) 12/02/2008 AD PURDY DIRECTIVE Health Care Decision (hx) 12/02/2008 AD PURDY DIRECTIVE Health Care Decision (hx) 12/02/2008 AD PURDY DIRECTIVE Health Care Decision (hx) 12/02/2008 AD PURDY DIRECTIVE Care Teams Frit Mixer Relationship Specialty Start Date End Date Luis Eduardo Hendrickson MD [address] [place] [phone] PCP - General Internal Medicine 03/06/24
--- OUTSIDE RECORDS SUMMARY | 2024-08-21 11:14 | XMS_ITS | Clinical Summary ---
Author Organization [facility] Address [address] [address] [place] [address] Phone Care Team Providers Care Separator Tender Name Role Phone Luis Eduardo Hendrickson MD Primary Care Provider [phone] Allergies Active Allergy Reactions Criticality Noted Date [...] PM EDT) Hemoglobin A1C 6.3(H) (4.0-5.6) % [facility] Comment: MONITORING: In known diabetic patients, hemoglobin A1c targets should be discussed with health care provider. DIAGNOSTIC USE: The [place] [employer] (ADA) and the World Health [...] Supplement 1 Testing performed or reported by [facility], a Service of [facility], [address] [place] [id number] Sami Patel MD, [place] [facility]# [id number] 09/27/2021 3:47 PM EDT 09/27/2021 3:49 PM EDT oNman Castillo MD LAB BLOOD ORDERABLES Final Re sult [facility] from Last 3 Months or Most Recently Relevant to Health Maintenance Insurance ([id number]) [place] [phone] ([id number]) [place] [id number] Care Teams Separator Tender Relationship Specialty Start Date End Date Luis Eduardo Hendrickson MD [address] [place] [phone] PCP - General 02/23/20
== END 2024-08-21 11:01 | disposition home or self-care (01) ==
LOC: HO.HKAS 10:36
PROVIDERS: PCP Internal Medicine; Visit Provider Internal Medicine Nephrology
DX: N18.32 Chronic kidney disease, stage 3b (principal); I10 Essential (primary) hypertension
CPT/HCPCS: 99214

== ENCOUNTER → 2024-08-21 10:35 | Outpatient (BNVA) | payer OTHER, SELFPAY | PROVIDERS: PCP Internal Medicine; Visit Provider Internal Medicine Nephrology | DX: I10 Essential (primary) hypertension (principal); N18.32 Chronic kidney disease, stage 3b | CPT/HCPCS: 99212 ==